=== PATIENT | male | born 1965 | race African-American/Black ===

== ENCOUNTER 2021-07-18 02:41 | Observation (INO) | payer BC ==
--- OUTSIDE RECORDS SUMMARY | 2021-07-18 02:46 | XMS REPORT | Continuity of Care Document ---
:1965 Author Organization [facility] t Address [address] [place] [address] Care Team Providers Name Role Phone Chris Wills MD Primary Care Physician Perfecto DIAZ Attending Clinician Payers Payer Name Policy Type Policy Number Effective Date Expiration Date S ource Problems This patient has no known problems. Allergies, Adverse Reactions, Alerts This patient has no known allergies or adverse reactions. Social History Social Habit Start Date Stop Date Quantity Comments Source Sex Ass[birth year] At [birth year] [facility] 00:00:00 00:00:00 Smoking Status Start Date Stop Date Source Unknown if ever smoked [facility] Medications Ordered Filled Start Stop Current Ordering Indication Dosage Frequency Signature Comments Components Source Medication Medication Date Date Medication? Clinician (SIG) Name Name DULoxetine Yes 60mg QD Take 60 mg M ethodi (CYMBALTA) [address] 60 MG 18:25: daily. [facility]osp[facility] capsule 46 l dextroamphe Yes 20mg QD Take 20 mg Methodi tamine-amph -[address] etamine 18:25: daily. Hospita (ADDERALL) 46 l 20 mg tablet modafinil Yes 100mg QD Take 100 Met hodi (PROVIGIL) 7-[address] 100 MG 18:25: mouth [facility]ospita tablet 46 daily. l vortioxetin Yes Trintellix Methodi e 7-[address] (TRINTELLIX 18:25: tablet Hosp sheree ) 10 mg 46 l tablet clomiPHENE Yes 25mg QD Take 25 mg M ethodi (CLOMID) 50 05-[address] mg tablet 18:25: daily. Hospit a 46 l Vital Signs Vital Name Observation Time Observation Value Comments Source Body height 2021-05-08 18:28:00 190.5 cm [facility] Body weight 2021-05-08 18:28:00 98.431 kg [facility] BMI 2021-05-08 18:28:00 27.12 kg/m2 [facility] Procedures Procedure Date / Time Performed Performing Clinician [facility] e CT ABDOMEN WWO CONTRAST 2021-05-08 19:19:51 System, Provider Not [facility] PELVIS W CONTRAST In POC CREATININE 2021-05-08 18:32:00 [facility] ESTIMATED GFR 2021-05-08 18:32:00 [facility] Plan of Care Planned Activity Planned Date Details Comments Source Future Scheduled Test COVID-19 VACCINE (1) [facility] [code = COVID-19 VACCINE (1)] Future Scheduled Test Hepatitis C screening [facility] (procedure) [code = 112009012] Future Scheduled Test COLONOSCOPY SCREENING [facility] [code = COLONOSCOPY SCREENING] Future Scheduled Test SHINGLES VACCINES (#1) [facility] [code = SHINGLES VACCINES (#1)] Future Scheduled Test INFLUENZA VACCINE [code [facility] = INFLUENZA VACCINE] Encounters Start End Encounter Admission Attending Care Care Encounter Source Date/Time Date/Time Type Type Clinicians Facility Department ID 2021-05-08 2021-05-08 [facility] 1.2.840.1 [id number] [facility] 12:52:46 23:59:00 Encounter , Abigail [id number] 3.430.2.7 Hospit a .3.929730 l .8 2021-05-08 2021-05-08 Outpatient [facility] [id number] [place] 00:00:00 00:00:00 , ABIGAIL [address] 2021-05-08 2021-05-08 Travel 1.2.840.1 [id number] [facility] 00:00:00 00:00:[id number] 3.430.2.7 0.2.7.3.698 Ho spita .3.793899 084.8 l .8 2021-05-06 2021-05-06 Travel 1.2.840.1 [id number] [id number] [facility] 00:00:00 00:00:[address] 3.430.2.7 0.2.7.3.698 Ho spita .3.396809 084.8 l .8 2021-05-06 2021-05-06 Transcribe [place] 1.2.840.1 [id number] [facility] 00:00:00 00:00:00 Orders , Abigail [id number] 530 s t 3.430.2.7 Hospit a .3.680488 l .8 Results Test Description Test Time Test Comments Results Result [facility] e Comments CT Abdomen [facility] EXAMINATION: CT Meth odist Contrast, Pelvis 2 ABDOMEN [facility] W Contrast 20:16:53 PELVIS W CONTRAST CLINICAL HISTORY: R19.09 Other intra-abdominal and pelvic swelling mass and lump, R19.09 COMPARISON: None. TECHNIQUE: CT of the abdomen and pelvis with intravenous contrast. Noncontrast images obtained of the abdomen. CT imaging was performed with iterative reconstruction techniques and/or automated exposure control to reduce radiation dose. FINDINGS: LOWER THORAX: Normal. HEPATOBILIARY: No focal hepatic lesion or ductal dilatation. SPLEEN: No splenomegaly. PANCREAS: No focal masses or ductal dilation. ADRENALS: There is a 1.6 cm left adrenal nodule (series 302, image 39) which is benign as it is unchanged from 2017. It measures 10 Hounsfield units on precontrast images, 61 Hounsfield units on postcontrast images and 30 Hounsfield units on 15 minute delayed. Absolute washout is 61%. No right adrenal nodule. KIDNEYS: No hydronephrosis, stones or solid masses. GI TRACT: The appendix is normal. There is no bowel dilation or wall thickening. PERITONEUM/RETROPERI TONEUM: No free air or fluid. No lymphadenopathy. VASCULATURE: Abdominal aorta is nonaneurysmal. PELVIC ORGANS/BLADDER: Unremarkable. BONES AND SOFT TISSUES: Small fat-containing umbilical hernia. There is some mild serpiginous sclerosis of the weight bearing portions of the femoral heads. This appears slightly more prominent than on prior. It's suggestive of some avascular necrosis without subchondral collapse. IMPRESSION: 1.1.6 cm left adrenal nodule is stable from 2017, benign. 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 2.Additional findings as above. [id number] Interface, Radiology Results 05/08/2021 3:19 PM CDT EXAMINATION : CT ABDOMEN WWO CONTRAST PELVIS W CONTRASTCLINICAL HISTORY: R19.09 Other intra-abdominal and pelvic swelling mass and lump, R19.09COMPARISON: None.TECHNIQUE: CT of the abdomen and pelvis with intravenous contrast. Noncontrast images obtained of the abdomen.CT imaging was performed with iterative reconstruction techniques and/or automated exposure control to reduce radiation dose. FINDINGS:LOWER THORAX: Normal.HEPATOBILIARY : No focal hepatic lesion or ductal dilatation.SPLEEN: No splenomegaly.PANCREA S: No focal masses or ductal dilation.ADRENALS: There is a 1.6 cm left adrenal nodule (series 302, image 39) which is benign as it is unchanged from 2017. It measures 10 Hounsfield units on precontrast images, 61 Hounsfield units on postcontrast images and 30 Hounsfield units on 15 minute delayed. Absolute washout is 61%. No right adrenal nodule.KIDNEYS: No hydronephrosis, stones or solid masses.GI TRACT: The appendix is normal. There is no bowel dilation or wall thickening.PERITONEU M/RETROPERITONEUM: No free air or fluid. No lymphadenopathy.VASC ULATURE: Abdominal aorta is nonaneurysmal.PELVIC ORGANS/BLADDER: Unremarkable.BONES AND SOFT TISSUES: Small fat-containing umbilical hernia. There is some mild serpiginous sclerosis of the weight bearing portions of the femoral heads. This appears slightly more prominent than on prior. It's suggestive of some avascular necrosis without subchondral collapse.IMPRESSION: 1.1.6 cm left adrenal nodule is stable from 2016, benign. 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.2.Additional findings as above.[id number] H POC creatinine 2021-05-08 18:33:48 Test Item Value Reference Range Interpretation Comme nts POC creatinine (test code = 1.3 mg/dl 0.7-1.2 H Training Instructor Name: Nimco [id number]) Ignacia Hart D: [id number] Lab Interpretation (test code = Abnormal 40040-1) [id number] 18:33:48 Test Item Value Reference Range Interpretation Comments Estimated GFR (test mL/min/1.73 m2 Caterg ory Units code = 16520-9) Interpretati onG1 >=90 Normal or highG2 60-89 Mildly cfzxkwuckM7q 45-59 Mildly to mode rately dakmzhdyoX3v 30-44 Moderately to severely decreasedG4 15-29 Severely decre asedG5 <15 Kidn ey failureThe eGFR was calculated maykel sorenson the Chronic Kidney Disease Epidemiology Co llaboration (CKD-EPI) equat ion. Interpretation is based on recommendations of the National Kidney Foundation-Kidn ey Disease Outcomes Qualit y Initiative (NKF-KDOQI) pub lished in 2014. [facility]
[2021-07-18 03:47] LABS: Protime INR 1.06
[2021-07-18 03:49] LABS: Absolute Lymphocytes (CBC) 1.2 K/uL (0.7-4.9); Basophils % 0.6 % (0-1.3); Hematocrit 40.1 % (39.6-49.0); Lymphocytes % 24.6 % (15.3-44.8); MPV 7.2 fL (7.6-11.3); RBC Red Blood Cell Count 4.48 M/uL (4.33-5.43)
[2021-07-18 04:06] LABS: ALT/SGPT 25 U/L (12-78); AST/SGOT 23 U/L (15-37); Albumin 3.8 g/dL (3.4-5.0); Alkaline Phosphatase 46 U/L (45-117); BUN Blood Urea Nitrogen 20 mg/dL (7-18); Bicarbonate 29 mmol/L (21-32); Bilirubin Direct 0.1 mg/dL (0-0.2); Bilirubin Total 0.5 mg/dL (0.2-1.0); Glucose Level 94 mg/dL (74-106); Magnesium 2.1 mg/dL (1.8-2.4); NT PRO-BNP 19 pg/mL (<125); Potassium 4.5 mmol/L (3.5-5.1); Protein, Total 7.6 g/dL (6.4-8.2); Sodium Level 139 mmol/L (136-145); Troponin (Emerg Dept Use Only) < 0.02 ng/mL (0.0-0.045)
--- NOTE | 2021-07-18 05:17 | EDPHYS ---
Physician Documentation [facility] Name: Mateus Jj Age: 56 yrs Sex: Male : 1965 Arrival Date: 07/18/2021 Time: 02:44 Bed 24 Private MD: ED Physician Juan Valverde HPI: 07/18 05:38 This 56 yrs old Black Male presents to ER via Wheelchair with complaints of Headache, tw4 FEELS DISORIENTED. 05:38 The patient complains of pain to the forehead. The patient describes the headache as tw4 aching. Onset: The symptoms/episode began/occurred today. Associated signs and symptoms: The patient has no apparent associated signs or symptoms. Severity of symptoms: At its worst the pain was moderate, in the emergency department the pain is unchanged. The patient has not experienced similar symptoms in the past. 05:39 Patient awoke tonight stated that he was disoriented and "did not feel right. Patient's tw4 noticed that he was really slow in his cognition. She denied that he had any changes in his speech. Patient complained that he had difficulty with his gait but could not describe specifically how he had difficulty walking. Patient denied falling to 1 side or the other. Patient denies any vertigo symptoms however he stated he felt lightheaded. Patient stated that he has improved somewhat since his symptoms started approximately 1 hour ago. 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 - Social history:: Smoking status: unknown. ROS: 05:38 Constitutional: Negative for fever, chills, and weight loss, Eyes: Negative for injury, tw4 pain, redness, and discharge, Cardiovascular: Negative for chest pain, palpitations, and edema, Respiratory: Negative for shortness of breath, cough, wheezing, and pleuritic chest pain, Abdomen/GI: Negative for abdominal pain, nausea, vomiting, diarrhea, and constipation, Back: Negative for injury and pain, MS/Extremity: Negative for injury and deformity, Skin: Negative for injury, rash, and discoloration. 05:38 Neuro: Positive for headache, Negative for altered mental status, dizziness, gait disturbance, numbness, seizure activity, speech changes, syncope, near syncope, tingling, tinnitus, tremor, visual changes. Exam: 05:38 Constitutional: This is a well developed, well nourished patient who is awake, alert, tw4 and in no acute distress. Head/Face: Normocephalic, atraumatic. Chest/axilla: Normal chest wall appearance and motion. Nontender with no deformity. No lesions are appreciated. Cardiovascular: Regular rate and rhythm with a normal S1 and S2. No gallops, murmurs, or rubs. Normal PMI, no JVD. No pulse deficits. Respiratory: Lungs have equal breath sounds bilaterally, clear to auscultation and percussion. No rales, rhonchi or wheezes noted. No increased work of breathing, no retractions or nasal flaring. Abdomen/GI: Soft, non-tender, with normal bowel sounds. No distension or tympany. No guarding or rebound. No evidence of tenderness throughout. Back: No spinal tenderness. No costovertebral tenderness. Full range of motion. MS/ Extremity: Pulses equal, no cyanosis. Neurovascular intact. Full, normal range of motion. 05:38 Neuro: Orientation: is normal, Mentation: is normal, Memory: is normal, Cranial nerves: grossly normal, Cerebellar function: is grossly normal, Motor: is normal, Sensation: is normal, Gait: is steady, at a normal pace, without difficulty. Vital Signs: 03:05 BP 112 / 87; Pulse 73; Resp 16 S; Temp 98.7(O); Pulse Ox 94% on R/A; Weight 99.79 kg bb (R); Height 6 ft. 3 in. (190.50 cm) (R); Pain 3/10; 04:00 BP 120 / 71; Pulse 78; Resp 13; Temp 98.7; jl7 04:18 BP 119 / 70; Pulse 78; Resp 16; Temp 98.8; Pulse Ox 99% ; wr 05:53 BP 109 / 79; Pulse 67; Resp 16; Temp 98.7; Pulse Ox 99% ; wr 03:05 Body Mass Index 27.50 (99.79 kg, 190.50 cm) NIH Stroke Scale Scores: 05:41 NIHSS Score: 0 tw4 John Coma Score: 05:41 Eye Response: spontaneous(4). Verbal Response: oriented(5). Motor Response: obeys tw4 commands(6). Total: 15. MDM: 02:54 Patient medically screened. tw4 05:41 Data reviewed: vital signs, nurses notes. Data interpreted: Pulse oximetry: is not tw4 applicable for this patient encounter. Counseling: I had a detailed discussion with the patient and/or guardian regarding: the historical points, exam findings, and any diagnostic results supporting the discharge/admit diagnosis. 07/18 02:55 Order name: Basic Metabolic Panel [facility] 07/18 02:55 Order name: CBC with Diff [facility] 07/18 02:55 Order name: LFT's [facility] 07/18 02:55 Order name: Magnesium [facility] 07/18 02:55 Order name: NT PRO-BNP [facility] 07/18 02:55 Order name: PT-INR; Complete Time: 04:40 [facility] 07/18 02:55 Order name: Troponin (emerg Dept Use Only) [facility] 07/18 02:55 Order name: Basic Metabolic Panel [facility] 07/18 02:55 Order name: CBC with Automated Diff; Complete Time: 04:40 [facility] 07/18 02:55 Order name: Liver (Hepatic) Function [facility] 07/18 02:55 Order name: Magnesium [facility] 07/18 04:21 Order name: CREATININE WHOLE BLOOD; Complete Time: 04:40 [facility] 07/18 05:22 Order name: COVID-19 : Document "Date of Symptom Onset" if Symptomatic. 07/18 06:33 Order name: SARS-COV-2 RT PCR [facility] 07/18 02:55 Order name: XRAY Chest (1 view) [facility] 07/18 02:55 Order name: EKG; Complete Time: 02:55 [facility] 07/18 02:55 Order name: Cardiac monitoring [facility] 07/18 02:55 Order name: EKG - Nurse/Tech [facility] 07/18 03:18 Order name: Ct Stroke Brain Wo Cont [facility] 07/18 03:38 Order name: CT Head Angio [facility] 07/18 03:38 Order name: CT Neck Angio [facility] 07/18 05:33 Order name: CONS Physician Consult [facility] 07/18 08:16 Order name: Lipid Profile [facility] 07/18 08:16 Order name: T4 Free [facility] 07/18 08:16 Order name: Thyroid Stimulating Hormone [facility] 07/18 02:55 Order name: IV Saline Lock [facility] 07/18 02:55 Order name: Labs collected and sent; Complete Time: 03:57 tw 07/18 02:55 Order name: O2 Per Protocol [facility] 07/18 02:55 Order name: O2 Sat Monitoring tw 07/18 03:17 Order name: O2 Sat Monitoring; Complete Time: 03:59 [facility] 07/18 03:17 Order name: Stroke Swallow Screen; Complete Time: 04:15 tw4 Administered Medications: 07:02 Drug: Aspirin Chewable Tablet 324 mg Route: PO; wr 07:02 Drug: foLIC Acid 1 mg Route: PO; Disposition Summary: 07/18/21 05:16 Hospitalization Ordered Hospitalization Status: Observation tw4 Provider: Teresita Lee [facility] Condition: Stable tw4 Problem: new tw4 Symptoms: have improved tw4 Bed/Room Type: Standard tw4 Location: [facility] ER HOLD(07/18/21 06:15) Room Assignment: ERHOLD-(07/18/21 06:15) Diagnosis - Altered mental status, unspecified tw4 Forms: - Medication Reconciliation Form tw4 - SBAR form tw4 NIH Stroke Scale - NIH Stroke Score Date: 07/18/2021 Time: 05:41 Total Score = 0 1a. Level of Consciousness (LOC) - 0(Alert) 1b. Level of Consciousness (LOC) (Month \\T\\ Age) - 0(Both) 1c. LOC Commands (Open \\T\\ Closes Eyes/Sales Department Clerk) - 0(Both) 2. Best Gaze (Lateral Gaze Paresis) - 0(Normal) 3. Visual Field Loss - 0(No visual loss) 4. Facial Palsy - 0(Normal) 5a. Left Arm: Motor (10-second hold) - 0(No drift) 5b. Right Arm: Motor (10-second hold) - 0(No drift) 6a. Left Leg: Motor (5-second hold - always test supine) - 0(No drift) 6b. Right Leg: Motor (5-second hold - always test supine) - 0(No drift) 7. Limb Ataxia (finger/nose \\T\\ heel/barbosa - test with eyes open) - 0(Absent) 8. Sensory Loss (pinprick arms/legs/face) - 0(Normal) 9. Best Language: Aphasia (description/naming/reading) - 0(No aphasia) 10. Dysarthria (speech clarity - read or repeat words) - 0(Normal) 11. Extinction and Inattention (visual/tactile/auditory/spatial/personal) - 0(No abnormality) Initials: tw4 Signatures: Dispatcher [employer] EDMS Rebecca Danielle, RN RN Sidra Mckeon, RN RN Juan Cabral MD MD [facility] Nahun Olivas Corrections: (The following items were deleted from the chart) 03:18 02:55 Head Brain Wo Cont+CT.RAD.BRZ ordered. EDMS EDMS 03:20 03:17 Chest Single View+RAD.RAD.BRZ ordered. EDMS EDMS 03:22 03:17 CT-STROKE BRAIN W/O CONTRAST+CT.RAD.BRZ ordered. EDMS EDMS 03:31 03:25 Home Meds: Adderall XR 30 mg Oral cp24; tono bb 06:15 05:16 Telemetry/MedSurg (observation) 4 mw 06:15 05:16 tw4 mw
--- NOTE | 2021-07-18 05:17 | ER ---
Nurse's Notes [facility] Name: Mateus Jj Age: 56 yrs Sex: Male : 1965 Arrival Date: 07/18/2021 Time: 02:44 Bed 24 Private MD: Diagnosis: Altered mental status, unspecified Presentation: 07/18 03:05 Chief complaint: Patient states: he woke up about 30 mins ago not feeling himself, bb disoriented, having to walk carefully, headache. states pt speaking very quietly which is not like him and he had a syncopal episode 4 days ago. Coronavirus screen: At this time, the client does not indicate any symptoms associated with coronavirus-19. Ebola Screen: No symptoms or risks identified at this time. Initial Sepsis Screen: Does the patient meet any 2 criteria? No. Patient's initial sepsis screen is negative. Does the patient have a suspected source of infection? No. Patient's initial sepsis screen is negative. Risk Assessment: Do you want to hurt yourself or someone else? Patient reports no desire to harm self or others. Onset of symptoms was July 18, 2021. 03:05 Method Of Arrival: Wheelchair bb 03:05 Acuity: MOY 2 bb Triage Assessment: 04:18 General: Appears in no apparent distress. Behavior is calm, cooperative. wr 04:30 Pain: Denies pain. 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 - Social history:: Smoking status: unknown. Screenin:17 Abuse screen: None. wr 04:23 The patient tolerated 90mL of water. No drooling, immediate coughing, gurgling, or wr clearing of the throat was noted. The patient passed the bedside swallow screening. Oral medications may be given as ordered. Contact Physician for further diet orders. Provider notified of bedside swallow screening results: Juan Valverde MD. Fall Risk None identified. Fall in past 12 months (25 points). No secondary diagnosis (0 pts). Mental Status- Oriented to own ability (0 pts). 04:29 Nutritional screening: No deficits noted. wr 04:31 Tuberculosis screening: No symptoms or risk factors identified. wr Vital Signs: 03:05 BP 112 / 87; Pulse 73; Resp 16 S; Temp 98.7(O); Pulse Ox 94% on R/A; Weight 99.79 kg bb (R); Height 6 ft. 3 in. (190.50 cm) (R); Pain 3/10; 04:00 BP 120 / 71; Pulse 78; Resp 13; Temp 98.7; jl7 04:18 BP 119 / 70; Pulse 78; Resp 16; Temp 98.8; Pulse Ox 99% ; wr 05:53 BP 109 / 79; Pulse 67; Resp 16; Temp 98.7; Pulse Ox 99% ; wr 03:05 Body Mass Index 27.50 (99.79 kg, 190.50 cm) bb John Coma Score: 05:41 Eye Response: spontaneous(4). Verbal Response: oriented(5). Motor Response: obeys tw4 commands(6). Total: 15. NIH Stroke Scale Scores: 05:41 NIHSS Score: 0 tw4 ED Course: 02:44 Patient arrived in ED. wm 02:54 Juan Valverde MD is Attending Physician. tw4 03:06 XRAY Chest (1 view) In Process Unspecified. EDMS 03:08 Triage completed. bb 03:10 Arm band placed on Patient placed in an exam room, on a stretcher, on pulse oximetry. bb Family accompanied patient. 03:21 Ct Stroke Brain Wo Cont In Process Unspecified. EDMS 04:11 CT Head Angio In Process Unspecified. EDMS 04:11 CT Neck Angio In Process Unspecified. EDMS 04:30 Patient has correct armband on for positive identification. wr 05:15 Teresita Lee MD is Hospitalizing Provider. tw4 07:23 Estephanie Lopez, MAXIMO is Primary Nurse. jl7 07:30 No provider procedures requiring assistance completed. Patient admitted, IV remains in jl7 place. intact, No redness/swelling at site. Administered Medications: 07:02 Drug: Aspirin Chewable Tablet 324 mg Route: PO; wr 07:02 Drug: foLIC Acid 1 mg Route: PO; wr Outcome: 04:23 Condition: stable wr 05:16 Decision to Hospitalize by Provider. tw4 07:30 Admitted to ER Hold. Please see [facility] for further documentation. jl7 07:30 Discharge instructions given to patient, family, Instructed on the need for admit, Demonstrated understanding of instructions. 17:31 Patient left the ED. jl7 NIH Stroke Scale - NIH Stroke Score Date: 07/18/2021 Time: 05:41 Total Score = 0 1a. Level of Consciousness (LOC) - 0(Alert) 1b. Level of Consciousness (LOC) (Month \T\ Age) - 0(Both) 1c. LOC Commands (Open \T\ Closes Eyes/Steel Fabricator) - 0(Both) 2. Best Gaze (Lateral Gaze Paresis) - 0(Normal) 3. Visual Field Loss - 0(No visual loss) 4. Facial Palsy - 0(Normal) 5a. Left Arm: Motor (10-second hold) - 0(No drift) 5b. Right Arm: Motor (10-second hold) - 0(No drift) 6a. Left Leg: Motor (5-second hold - always test supine) - 0(No drift) 6b. Right Leg: Motor (5-second hold - always test supine) - 0(No drift) 7. Limb Ataxia (finger/nose \T\ heel/barbosa - test with eyes open) - 0(Absent) 8. Sensory Loss (pinprick arms/legs/face) - 0(Normal) 9. Best Language: Aphasia (description/naming/reading) - 0(No aphasia) 10. Dysarthria (speech clarity - read or repeat words) - 0(Normal) 11. Extinction and Inattention (visual/tactile/auditory/spatial/personal) - 0(No abnormality) Initials: tw4 Signatures: Dispatcher [employer] Sidra Hung RN RN bb Leal, Jahala, RN RN jl7 Juan Valverde MD MD tw4 Lila Pastrana [place] wr Corrections: (The following items were deleted from the chart) 03:31 03:25 Home Meds: Adderall XR 30 mg Oral cp24; tono power 07:30 04:00 BP 120 / 71; Pulse 78bpm; Resp 13bpm; Temp 98.7F; 44 kg; BMI: 12.1; wr jl7
--- NOTE | 2021-07-18 05:56 | P.HP ---
Certification for Inpatient Patient admitted to: Observation With expected LOS: <2 Midnights Patient will require the following post-hospital care: None Practitioner: I am a practitioner with admitting privileges, knowledge of patient current condition, hospital course, and medical plan of care. Services: Services provided to patient in accordance with Admission requirements found in Title 42 Section 412.3 of the Code of Federal Regulations <William Garcia Carolann - Last Filed: 07/18/21 05:50> Patient History Date of Service: 07/18/21 Primary Care Provider: Chris Reason for admission: disorientation History of Present Illness: Ms. Jj is a 56 yo M w narcolepsy, vasovagal syncope, unspecified autoimmune disorder who presents with episode of dizziness. He says he woke up early this morning and was not feeling himself. Describes feeling lightheaded, disoriented, 'fogginess' and a headache. Also reports nausea. says he was walking very carefully and speaking quietly. Before he went to sleep, he says he felt like his baseline. This has never happened before. Symptoms have now resolved. Had an episode of syncope 4 days ago. BUN 20, Cr 1.39, GFR 65. Ct head without findings. Admitted for observation to be seen by neurologist. 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 moist/pink, EOMI, Sclerae nonicteric Neck: Supple, 2+ carotid pulse no bruit, No LAD, Without JVD or thyroid abnormality Respiratory: Clear to auscultation bilaterally, Normal air movement Cardiovascular: Regular rate/rhythm, Normal S1 S2 Gastrointestinal: Normal bowel sounds, No tenderness Musculoskeletal: No tenderness Integumentary: No rashes Neurological: Normal gait, Normal speech, Normal strength at 5/5 x4 extr, Normal tone, Normal affect Lymphatics: No axilla or inguinal lymphadenopathy - Studies Laboratory Data (last 24 hrs) 07/18/21 03:24: PT 12.2, INR 1.06 07/18/21 03:24: WBC 5.00, Hgb 13.1 L, Hct 40.1, Plt Count 249 07/18/21 03:24: Sodium 139, Potassium 4.5, BUN 20 H, Creatinine 1.39 H, Glucose 94, Magnesium 2.1, Total Bilirubin 0.5, AST 23, ALT 25, Alkaline Phosphatase 46 <William Garcia - Last Filed: 07/18/21 05:50> Assessment and Plan - Problems (Diagnosis) (1) Disorientation Status: Acute - Plan neurology consulted daily ASA, folic acid, statin lipid panel pending MRI pending, ECHO pending reconcile and continue home medications DVT ppx Discharge Plan: Home Plan to discharge in: 24 Hours - Advance Directives Does patient have a Living Will: Yes Does patient have a Durable POA for Healthcare: Yes - Code Status/Comfort Care Code Status Assessed: Yes (full code ) Critical Care: No Time Spent Managing Pts Care (In Minutes): 70 <William Garcia - Last Filed: 07/18/21 05:50> Date of Service: 07/18/21 Subjective: Agree with plan of care as mentioned above Physical Examination: Vitals: Afebrile vital signs are stable Physical exam: Cardiovascular: Within normal limits. Lungs: Within normal limits Abdomen: Within normal limits Neuro: Awake, alert, oriented to person place and time Assessment: 1. Syncope and collapse Plan: 1. Plan to do outpatient neurology and cardiology follow-up. <Teresita Lee - Last Filed: 07/20/21 01:14>
[2021-07-18] MEDS ORDERED: NA CHLORIDE 0.9% 1,000 ML IV SCH (06:00)
[2021-07-18] MEDS ORDERED: ACETAMINOPHEN 500 MG TAB PO PRN (07:17)
[2021-07-18] MEDS ORDERED: ONDANSETRON 4 MG/2 ML VIAL IV PRN (07:17)
[2021-07-18] MEDS ORDERED: ASPIRIN 325 MG TAB ONE (07:22)
[2021-07-18] MEDS ORDERED: FOLIC ACID 1 MG TABLET ONE ×2 (07:23→09:05)
[2021-07-18 07:49] VITALS: BMI 27.5
[2021-07-18 08:16] LABS: HDL Cholesterol 54 mg/dL (40-60); LDL Cholesterol, Calculated 90 (<130); Thyroid Stimulating Hormone 0.638 uIU/mL (0.360-3.740)
--- NOTE | 2021-07-18 08:31 | RAD REPORT ---
EXAM DESCRIPTION: RAD - Chest Single View - 07/18/2021 3:06 am CLINICAL HISTORY: .. COMPARISON: No comparisons FINDINGS: Lines: None. Lungs: There is some scattered faint airspace opacities in the lung bases. Pleural: No significant pleural effusions or pneumothorax. Cardiac: The heart size is within normal limits. Bones: No acute fractures. Other: IMPRESSION: Mild basilar opacities could reflect pneumonia.
[2021-07-18] MEDS ORDERED: ASPIRIN EC 81 MG TAB PO SCH (09:00)
[2021-07-18] MEDS ORDERED: FOLIC ACID 1 MG TABLET PO SCH (09:00)
[2021-07-18] MEDS ORDERED: ASPIRIN EC 81 MG TAB PO ONE (09:06)
[2021-07-18] MEDS ORDERED: NA CHLORIDE 0.9% 1,000 ML ONE (09:06)
[2021-07-18 10:20] VITALS: O2SAT 94
--- NOTE | 2021-07-18 12:08 | RAD REPORT ---
EXAM DESCRIPTION: CT - Head angio - 07/18/2021 5:59 am COMPARISON: CT head 07/18/2021 CLINICAL HISTORY: [facility] MAIN CONFUSED TECHNIQUE: CTA of the head and neck was performed with IV contrast. Multiplanar reformats were obtai josh. MIPS reformats are provided. Automated exposure control was utilized on the exam as a dose lower ing technique. HEAD FINDINGS: Anterior circulation: The visualized portions of the internal carotid arteries are unremarkable. Both anterior and middle cerebral arteries show no significant stenosis. No anterior ci rculation aneurysms. Posterior circulation: The visualized distal vertebral arteries are patent to the vertebrobasilar j unction. The basilar artery and both posterior cerebral arteries are patent. No posterior circulation aneurysms. Visualized dural venous sinuses: Patent. Other findings: The visualized brain parenchyma is unremarkable. Visualized portions of the orbits, sinuses, mastoids, and skull base are unremarkable. NECK FINDINGS: Cervical-cerebral arch: The aortic arch is out of the [id number]. No significant s tenoses of the arch or branching vessels. Visualized subclavian arteries are patent. RIGHT carotid system: The common carotid artery is patent. The internal carotid artery is patent. The external carotid artery is patent. No significant calcified plaque. No evidence of dissection. The estimated internal carotid stenosis by NASCET criteria is 0%. LEFT carotid system: The common carotid artery is patent. The internal carotid artery is patent. The external carotid artery is patent. No significant calcified plaque. No evidence of dissection. The estimated internal carotid stenosis by NASCET criteria is 0%. Vertebral arteries: The right vertebral artery is patent to the cervical portion. The left vertebral artery is patent to the cervical portion. No evidence for dissection or aneurysm. Thyroid Gland: Normal. Cervical soft tissues, upper chest and osseous structures: Cervical spondylosis. IMPRESSION: *Exam limited by motion artifact, especially in the basicervical region and petrous port ions of the internal carotid arteries. No acute intracranial or extracranial vascular findings. COMMENT: All internal carotid artery stenoses are calculated based on NASCET criteria. Electronically signed by: Pelon Muhammad MD 07/18/2021 4:57 AM CDT Due to temporary technical issues with the PACS/Fluency reporting system, reports are being signed by the in house radiologists without review as a courtesy to insure prompt reporting. The interpreting radiologist is fully responsible for the content of the report.
--- NOTE | 2021-07-18 12:21 | RAD REPORT ---
EXAM DESCRIPTION: CT - Neck Angio - 07/18/2021 6:00 am COMPARISON: CT head 07/18/2021 CLINICAL HISTORY: [facility] MAIN CONFUSED TECHNIQUE: CTA of the head and neck was performed with IV contrast. Multiplanar reformats were obtai josh. MIPS reformats are provided. Automated exposure control was utilized on the exam as a dose lower ing technique. HEAD FINDINGS: Anterior circulation: The visualized portions of the internal carotid arteries are unremarkable. Both anterior and middle cerebral arteries show no significant stenosis. No anterior ci rculation aneurysms. Posterior circulation: The visualized distal vertebral arteries are patent to the vertebrobasilar j unction. The basilar artery and both posterior cerebral arteries are patent. No posterior circulation aneurysms. Visualized dural venous sinuses: Patent. Other findings: The visualized brain parenchyma is unremarkable. Visualized portions of the orbits, sinuses, mastoids, and skull base are unremarkable. NECK FINDINGS: Cervical-cerebral arch: The aortic arch is out of the [id number]-orri. No significant s tenoses of the arch or branching vessels. Visualized subclavian arteries are patent. RIGHT carotid system: The common carotid artery is patent. The internal carotid artery is patent. The external carotid artery is patent. No significant calcified plaque. No evidence of dissection. The estimated internal carotid stenosis by NASCET criteria is 0%. LEFT carotid system: The common carotid artery is patent. The internal carotid artery is patent. The external carotid artery is patent. No significant calcified plaque. No evidence of dissection. The estimated internal carotid stenosis by NASCET criteria is 0%. Vertebral arteries: The right vertebral artery is patent to the cervical portion. The left vertebral artery is patent to the cervical portion. No evidence for dissection or aneurysm. Thyroid Gland: Normal. Cervical soft tissues, upper chest and osseous structures: Cervical spondylosis. IMPRESSION: *Exam limited by motion artifact, especially in the basicervical region and petrous port ions of the internal carotid arteries. No acute intracranial or extracranial vascular findings. COMMENT: All internal carotid artery stenoses are calculated based on NASCET criteria. Electronically signed by: Pelon Muhammad MD 07/18/2021 4:57 AM CDT Due to temporary technical issues with the PACS/Fluency reporting system, reports are being signed by the in house radiologists without review as a courtesy to insure prompt reporting. The interpreting radiologist is fully responsible for the content of the report.
--- NOTE | 2021-07-18 12:32 | RAD REPORT ---
EXAM DESCRIPTION: CT - Ct Stroke Brain Wo Cont - 07/18/2021 6:00 am COMPARISON: None. CLINICAL HISTORY: [facility] MAIN CONFUSED TECHNIQUE: Axial images were obtained from skull base to vertex without intravenous contrast. Imag es viewed on bone and brain windows. Multiplanar reformats were performed. Automated exposure contr ol was utilized on this examination as a dose lowering technique. FINDINGS: Brain parenchyma, ventricles, dura, meninges, and extra-axial spaces: Ventricles and sulci are normal. No abnormal attenuation of brain parenchyma is present. No acute intracranial hemor rhage or abnormal extra-axial fluid collections are present. Vascular structures: No hyperdense arteries or veins. Calvarium, mastoid air cells, paranasal sinuses and orbits: The calvarium is normal. The mastoid air cells are clear. Visualized paranasal sinuses are unremarkable. Orbital structures are unremarkable. IMPRESSION: No acute intracranial abnormality. Electronically signed by: Pelon Muhammad MD 07/18/2021 3:31 AM CDT Due to temporary technical issues with the PACS/Fluency reporting system, reports are being signed by the in house radiologists without review as a courtesy to insure prompt reporting. The interpreting radiologist is fully responsible for the content of the report.
[2021-07-18 14:58] VITALS: TEMP 98.1
[2021-07-18 16:52] VITALS: BP 102/74
[2021-07-18] MEDS ORDERED: ATORVASTATIN 40 MG TAB PO SCH (21:00)
--- NOTE | 2021-07-20 01:13 | P.DS ---
Discharge Date: 07/18/21 Primary Care Provider: Chris Disposition: ROUTINE DISCHARGE Discharge Condition: GOOD Reason for Admission: disorientation Brief History of Present Illness: Ms. Jj is a 56 yo M w narcolepsy, vasovagal syncope, unspecified autoimmune disorder who presents with episode of dizziness. He says he woke up early this morning and was not feeling himself. Describes feeling lightheaded, disoriented, 'fogginess' and a headache. Also reports nausea. says he was walking very carefully and speaking quietly. Before he went to sleep, he says he felt like his baseline. This has never happened before. Symptoms have now resolved. Had an episode of syncope 4 days ago. BUN 20, Cr 1.39, GFR 65. Ct head without findings. Admitted for observation to be seen by neurologist. Hospital Course: Patient workup was unremarkable. Spoke with Neurology and they will follow up patient up as an outpatient for MRI of the brain. Spoke with Cardiology and they will follow patient up for the event monitor. At this time patient is steady and doing well and stable for discharge home. Vital Signs/Physical Exam: Temp Pulse Resp BP Pulse Ox 98.1 F 66 15 102/74 98 07/18/21 12:00 07/18/21 16:00 07/18/21 16:00 07/18/21 16:00 07/18/21 16:00 General: Alert, In no apparent distress, Oriented x3 Laboratory Data at Discharge: WBC 5.00 K/uL (4.3-10.9) 07/18/21 03:24 Hgb 13.1 g/dL (13.6-17.9) L 07/18/21 03:24 Hct 40.1 % (39.6-49.0) 07/18/21 03:24 Plt Count 249 K/uL (152-406) 07/18/21 03:24 PT 12.2 SECONDS (9.5-12.5) 07/18/21 03:24 INR 1.06 07/18/21 03:24 Sodium 139 mmol/L (136-145) 07/18/21 03:24 Potassium 4.5 mmol/L (3.5-5.1) 07/18/21 03:24 BUN 20 mg/dL (7-18) H 07/18/21 03:24 Creatinine 1.39 mg/dL (0.55-1.3) H 07/18/21 03:24 Glucose 94 mg/dL (74-106) 07/18/21 03:24 Magnesium 2.1 mg/dL (1.8-2.4) 07/18/21 03:24 Total Bilirubin 0.5 mg/dL (0.2-1.0) 07/18/21 03:24 AST 23 U/L (15-37) 07/18/21 03:24 ALT 25 U/L (12-78) 07/18/21 03:24 Alkaline Phosphatase 46 U/L (45-117) 07/18/21 03:24 Triglycerides Cancelled 07/18/21 07:17 Cholesterol Cancelled 07/18/21 07:17 HDL Cholesterol Cancelled 07/18/21 07:17 Cholesterol/HDL Ratio Cancelled 07/18/21 07:17 Home Medications: Dextroamphetamine/Amphetamine [Adderall 30 mg Tablet] 30 mg PO DAILY 07/18/21 Vortioxetine Hydrobromide [Brintellix] 10 mg PO DAILY 07/18/21 clomiPHENE citrate [Clomiphene Citrate] 25 mg PO DAILY 07/18/21 Physician Discharge Instructions: OK TO DC IV AND DC HOME FOLLOW-UP WITH PCP IN 1-2 WEEKS CALL ME AT [phone] IF ANY QUESTIONS REGARD FOLLOW-UP WITH CARDIOLOGY, DR. METCALF, AND NEUROLOGY, DR. LUDWIG, IN 1-2 WEEKS RETURN TO THE ER IF SYMPTOMS WORSENS Diet: AHA Activity: Fall precautions Followup: Ender Metcalf MD [ACTIVE - CAN ADMIT] - Matthew Ludwig MD [ASSOCIATE-ACTIVE - CAN ADMIT] - Sean Perez MD [ACTIVE - CAN ADMIT] - NONE,NONE [Primary Care Provider] - Time spent managing pt's care (in minutes): 35
== END 2021-07-18 17:35 | disposition home or self-care (01) ==
LOC: ER 02:41 → UNDOADMOB 05:42 → ERHOLD 05:42
PROVIDERS: ADMIT Hospitalist; ATTEND Hospitalist
DX: R41.0 Disorientation, unspecified (principal); R55 Syncope and collapse; G47.419 Narcolepsy without cataplexy; D47.Z2 Castleman disease; Z20.822 Contact with and (suspected) exposure to COVID-19
CPT/HCPCS: 85025; 80048; 36415; 83735; 85610; 80061; 82565; 80076; 84443; 84484; 84439; 83880; 70496; 70498; 70450; 71045; 97161; 99285; U0003; Q9967; J7030; G0378

== ENCOUNTER 2022-02-10 13:54 | Observation (INO) | payer BC ==
--- OUTSIDE RECORDS SUMMARY | 2022-02-10 13:56 | XMS REPORT | Continuity of Care Document ---
:1965 Author Organization [facility] t Address [address] [place] [address] Care Team Providers Name Role Phone Chris Wills MD Primary Care Physician Leonel Attending Clinician Unavailable Perfecto DIAZ Attending Clinician GC_TEG_Perfecto_Meaghan Attending Clinician Unavailable KNOW Admitting Clinician Unavailable MERRITT_PEPE_Perfecto_C Admitting Clinician Unavailable Payers Payer Name Policy Type Policy Number Effective Date Expiration Date S marcia [place] [id number] 2015 00:00:00 Problems This patient has no known problems. Allergies, Adverse Reactions, Alerts This patient has no known allergies or adverse reactions. Social History Social Habit Start Date Stop Date Quantity Comments Source Sex Assigned At [birth year] [facility] 00:00:00 00:00:00 Smoking Status Start Date Stop Date Source Unknown if ever smoked [facility] Medications Ordered Filled Start Stop Current Ordering Indication Dosage Frequency Signature Comments Components Source Medication Medication Date Date Medication? Clinician (SIG) Name Name DULoxetine Yes 60mg QD Take 60 mg M ethodi (CYMBALTA) 05-[address] 60 MG 18:25: daily. Hospita capsule 46 l dextroamphe Yes 20mg QD Take 20 mg Methodi tamine-amph 05-[address] etamine 18:25: daily. Hospita [...] Take 25 mg M ethodi (CLOMID) [address] mg tablet 18:25: daily. Hospit a 46 l Vital Signs Vital Name Observation Time Observation Value Comments Source Body height 2021-05-08 18:28:00 190.5 cm [facility] Body weight 2021-05-08 18:28:00 98.431 kg [facility] BMI 2021-05-08 18:28:00 27.12 kg/m2 [facility] Procedures Procedure Date / Time Performed Performing Clinician Sour e CT ABDOMEN WWO CONTRAST 2021-05-08 19:19:51 System, Provider Not [facility] PELVIS W CONTRAST In POC CREATININE 2021-05-08 18:32:00 [facility] ESTIMATED GFR 2021-05-08 18:32:00 [facility] Plan of Care Planned Activity Planned Date Details Comments Source Future Scheduled Test COVID-19 VACCINE (1) [facility] [code = COVID-19 VACCINE (1)] Future Scheduled Test Hepatitis C screening [facility] (procedure) [code = 725954740] Future Scheduled Test COLONOSCOPY SCREENING [facility] [code = COLONOSCOPY SCREENING] Future Scheduled Test SHINGLES VACCINES (#1) [facility] [code = SHINGLES VACCINES (#1)] Future Scheduled Test INFLUENZA VACCINE [code [facility] = INFLUENZA VACCINE] Encounters Start End Encounter Admission Attending Care Care Encounter Source Date/Time Date/Time Type Type Clinicians Facility Department ID 2021-08-13 Inpatient [facility] RADI [id number] [facility] 13:00:00 Hayes [id number] [facility] 2021-08-20 2021-08-20 Outpatient Leonel [facility] RADI [id number] [facility] 10:00:00 10:00:00 Hayes [id number] [facility] 2021-08-13 2021-08-13 Outpatient LUL Peraza RADI [id number] [facility] 13:08:00 13:08:00 Hayes 74 [facility] 2021-05-08 2021-05-08 [facility] 1.2.840.1 [id number] Methodi 12:52:46 23:59:00 Abigail Rodriguez [address] 3.430.2.7 Hospit a .3.036116 l .8 2021-05-08 2021-05-08 Travel 1.2.840.1 1.2.623.696 [id number] Methodi 00:00:00 00:00:[address] 3.430.2.7 0.2.7.3.698 Ho spita .3.989552 084.8 l .8 2021-05-06 2021-05-06 Travel 1.2.840.1 1.2.864.929 [id number] [facility]i 00:00:00 00:00:[address] 3.430.2.7 0.2.7.3.698 Ho spita .3.881001 084.8 l .8 2021-05-06 2021-05-06 Transcribe [facility] 1.2.840.1 [id number] Methodi 00:00:00 00:00:00 Abigail Brown 70835.1.1 530 s t 3.430.2.7 Hospit a .3.715648 l .8 2021-03-12 2021-03-12 Outpatient GC_TEG_Bocc PRIV PRIV [id number] [facility] 01:01:00 01:01:00 nicole_Meaghan [id number] [facility] Results Test Description Test Time Test Comments Results Result [facility] e Comments - MRI C-SPINE W/O CONT 7 16:49:00 [facility] 1965 Sex: M FAX: Y Hayes Castaneda Camps: PM St: REG Name: KENNY FELDMAN Meaghan [facility] : 1965 Age/S: 56/M [id number] Unit #: [id number] Loc: [place] [address] Phys: Hayes Castaneda Acct: [id number] Dis Date: Status: REG CLI PHONE #: [phone] Exam Date: 08/13/2021 1400 FAX #: Reason: SYNCOPE/FALL EXAMS: CPT: [id number] MRI C-SPINE W/O CONT 70617 Dictation location: S17. MRI CERVICAL SPINE WITHOUT CONTRAST HISTORY: Syncope, fall TECHNIQUE: Multiplanar and multiple pulse sequences were obtained through the cervical spine without contrast. COMPARISON: None. FINDINGS: The vertebral alignment is straightened. The C1-C2 relation and craniocervical junction are preserved. No signal intensity changes are present in the spinal cord. At the C2-C3 level, right facet arthrosis causes no spinal canal stenosis and mild right neuroforaminal narrowing. At the C3-C4 level, no spinal canal stenosis or neuroforaminal narrowing. At the C4-C5 level, posterior disc and osteophyte complex asymmetric towards the right causes mild spinal canal stenosis and mild right neuroforaminal narrowing. At the C5-C6 level, posterior disc and osteophyte complex with prominent left uncovertebral hypertrophy causes mild to moderate spinal canal stenosis and mild right and severe left neuroforaminal narrowing. At the C6-C7 level, small posterior disc and osteophyte complex causes mild spinal canal stenosis and mild right neuroforaminal narrowing. At the C7-T1 level, no spinal canal stenosis or neuroforaminal narrowing. The signal intensity of the vertebral bodies is normal. IMPRESSION: PAGE 1 Signed Report (CONTINUED) FAX: Hayes Diaz Camps: PM St: [facility] 1965 Age/S: 56/M [id number] Unit #: [id number] Loc: [place] [address] Phys: Hayes Castaneda Acct: [id number] Dis Date: Status: REG CLI PHONE #: [phone] Exam Date: 08/13/2021 1400 FAX #: Reason: SYNCOPE/FALL EXAMS: CPT: [id number] MRI C-SPINE W/O CONT 27886 <Continued> Cervical spondylosis greatest at C5-C6 with mild to moderate spinal canal stenosis and severe left neuroforaminal narrowing. at 1039 Reported and signed by: Kj Ruiz M.D. CC: Hayes CERNA Technologist: RT Almas(Yasmeen)(MR) Transcribed Date/Time/By: 08/13/2021 (243) :[email or web address] Orig Print D/T: S: 08/13/2021 (540) PAGE 2 Signed Report - MRI BRAIN W/O CONTRAST 7 16:44:00 [facility] 1965 Sex: M FAX: Hayes Diaz Camps: PM St: REG Name: KENNY FELDMAN [facility] : 1965 Age/S: 56/M [id number] Unit #: [id number] Loc: [place] [address] Phys: Hayes Castaneda Acct: [id number] Dis Date: Status: REG CLI PHONE #: [phone] Exam Date: 08/13/2021 1430 FAX #: Reason: SYNCOPE/FALL EXAMS: CPT: [id number] MRI BRAIN W/O CONTRAST 30706 Dictation location: S17. MRI BRAIN WITHOUT CONTRAST HISTORY: SYNCOPE/FALL TECHNIQUE: Multiplanar and multiple pulse sequences were obtained throughout the brain without contrast. COMPARISON: None. FINDINGS: Diffusion weighted imaging shows no evidence of acute ischemia. The pituitary and posterior fossa are unremarkable. No significant abnormal T2/FLAIR signal hyperintensities in noted within the white matter. No hemorrhage, mass, mass effect, hydrocephalus, midline shift or extra-axial fluid collection. The paranasal sinuses and mastoid air cells are clear. IMPRESSION: No evidence of acute ischemia. Unremarkable MRI brain without contrast. at 1644 Reported and signed by: Kj Ruiz M.D. CC: Hayes CERNA Technologist: Tamika Herrera, RT(R)(MR) Transcribed Date/Time/By: 08/13/2021 (0601) :[email or web address] Orig Print D/T: S: 08/13/2021 (3562) PAGE [address] Abdomen WWO EXAMINATION: CT [facility]ist Contrast, Pelvis 2 ABDOMEN WWO CONTRAST Hospital W Contrast 20:16:53 PELVIS W CONTRAST [...] is no bowel dilation or wall thickening. PERITONEUM/RETROPERIT ONEUM: No free air or fluid. No lymphadenopathy. [...] consistent with adenoma. 2.Additional findings as above. [facility]-[id number] Interface, Radiology Results Incoming - 05/08/2021 3:19 PM CDT EXAMINATION: CT ABDOMEN WWO CONTRAST PELVIS W CONTRASTCLINICAL HISTORY: R19.09 Other intra-abdominal and pelvic swelling mass and lump, R19.09COMPARISON: None.TECHNIQUE: CT of the abdomen and pelvis with intravenous contrast. Noncontrast images obtained of the abdomen.CT imaging was performed with iterative reconstruction techniques and/or automated exposure control to reduce radiation dose. FINDINGS:LOWER THORAX: Normal.HEPATOBILIARY: No focal hepatic lesion or ductal dilatation.SPLEEN: No splenomegaly.PANCREAS : No focal masses or ductal dilation.ADRENALS: There [...] There is no bowel dilation or wall thickening.PERITONEUM /RETROPERITONEUM: No free air or fluid. No lymphadenopathy.VASCU LATURE: Abdominal aorta is nonaneurysmal.PELVIC ORGANS/BLADDER: Unremarkable.BONES AND SOFT TISSUES: Small fat-containing umbilical hernia. There is some mild serpiginous sclerosis of the weight bearing portions of the femoral heads. This appears slightly more prominent than on prior. It's suggestive of some avascular necrosis without subchondral collapse.IMPRESSION:1 .1.6 cm left adrenal nodule is stable from 2017, benign. 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.2.Additional findings as above.[id number] POC creatinine 2021-05-08 18:33:48 Test Item Value Reference Range Interpretation Comme nts POC creatinine (test code = 1.3 mg/dl 0.7-1.2 H Be[employer] Farmer Name: Nimco [id number]) [facility] D: [id number] Lab Interpretation (test code = Abnormal 65936-1) [facility]Estimated [id number] 18:33:48 Test Item Value Reference Range Interpretation Comments Estimated GFR (test mL/min/1.73 m2 Caterg ory Units code = 24989-3) Interpretati onG1 >=90 Normal or highG2 60-89 Mildly obdzhsviqL7d 45-59 Mildly to mode rately ruijwptofD0n 30-44 Moderately to severely decreasedG4 15-29 Severely decre asedG5 <15 Kidn ey failureThe eGFR was calculated usin g the Chronic Kidney Disease Epidemiology Co llaboration (CKD-EPI) equat ion. Interpretation is based on recommendations of the National Kidney Foundation-Kidn ey Disease Outcomes Qualit y Initiative (NKF-KDOQI) pub lished in 2014. [facility]
[2022-02-10] MEDS ORDERED: FAMOTIDINE 20 MG/2 ML VIAL IV ONE (14:13)
[2022-02-10] MEDS ORDERED: METHYLPREDNISOLONE 125 MG INJ ONE (14:13)
[2022-02-10] MEDS ORDERED: DIPHENHYDRAMINE 50 MG/ML VIAL ONE (14:13)
[2022-02-10 14:29] LABS: Absolute Lymphocytes (CBC) 1.6 K/uL (0.7-4.9); Hematocrit 39.3 % (39.6-49.0); Lymphocytes % 28.8 % (15.3-44.8); MPV 6.5 fL (7.6-11.3); RBC Red Blood Cell Count 4.55 M/uL (4.33-5.43)
--- NOTE | 2022-02-10 16:51 | EDPHYS ---
Physician Documentation [facility] Name: Mateus Jj Age: 56 yrs Sex: Male : 1965 Arrival Date: 02/10/2022 Time: 13:[address] Private MD: ED Physician Judd Cerrato HPI: 02/10 14:05 This 56 yrs old Black Male presents to ER via Ambulatory with complaints of Lips cp Swelling. 14:05 The patient presents with swelling. The problem is located in the upper and lower lip. cp Onset: The symptoms/episode began/occurred today. Duration: The symptoms are continuous, and are steadily getting worse. 14:05 Associated signs and symptoms: The patient has no apparent associated signs or symptoms.cp 14:05 Severity of symptoms: in the emergency department the symptoms are unchanged. The cp patient has not experienced similar symptoms in the past. Patient denies any new prescribed meds and/or medications OTC. Patient reports history of environmental allergies, denies food allergies and reports he usually takes Benadryl daily but did not take any Benadryl today. 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 - Social history:: Smoking status: Patient denies any tobacco usage or history of. ROS: 14:10 Constitutional: Negative for body aches, chills, fever, poor PO intake. cp 14:10 ENT: Positive for swelling of upper and lower lips, Negative for drainage from ear(s), cp ear pain, sore throat, difficulty swallowing, difficulty handling secretions. 14:10 Cardiovascular: Negative for chest pain. 14:10 Respiratory: Negative for cough, shortness of breath, wheezing. 14:10 Abdomen/GI: Negative for abdominal pain, nausea, vomiting, and diarrhea. 14:10 Neuro: Negative for altered mental status, headache, weakness. 14:10 All other systems are negative. Exam: 14:15 Constitutional: The patient appears in no acute distress, alert, awake, cp non-diaphoretic, non-toxic, well developed, well nourished. 14:15 Head/face: Noted is swelling, that is mild, of the upper lip and lower lip. cp 14:15 Eyes: Periorbital structures: appear normal, Conjunctiva: normal, no exudate, no injection, Sclera: no appreciated abnormality, Lids and lashes: appear normal, bilaterally. 14:15 ENT: External ear(s): are unremarkable, Nose: is normal, Mouth: Oral mucosa: pink and intact, moist, Tongue: is normal, drooling, is not appreciated, Posterior pharynx: Airway: no evidence of obstruction, patent. 14:15 Neck: ROM/movement: is normal, is supple, without pain, no range of motions limitations. 14:15 Chest/axilla: Inspection: normal, Palpation: is normal, no crepitus, no tenderness. 14:15 Cardiovascular: Rate: normal, Rhythm: regular. 14:15 Respiratory: the patient does not display signs of respiratory distress, Respirations: normal, no use of accessory muscles, no retractions, labored breathing, is not present, Breath sounds: are clear throughout, no decreased breath sounds, no stridor, no wheezing. 14:15 Abdomen/GI: Exam negative for discomfort, distension, guarding, Inspection: abdomen appears normal. 14:15 Skin: cellulitis, is not appreciated, no rash present. 14:15 Neuro: Orientation: to person, place \T\ time. Mentation: is normal, Motor: moves all cp fours, strength is normal. Vital Signs: 14:01 BP 117 / 77; Pulse 73; Resp 18 S; Temp 97.0(TE); Pulse Ox 98% on R/A; Weight 98.88 kg jd3 (R); Height 6 ft. 3 in. (190.50 cm) (R); Pain 0/10; 15:21 BP 106 / 77; Pulse 68; Resp 16; Pulse Ox 96% on R/A; vg1 16:00 BP 98 / 72; Pulse 65; Resp 16; Pulse Ox 95% on R/A; vg1 14:01 Body Mass Index 27.25 (98.88 kg, 190.50 cm) jd3 MDM: 14:30 Differential diagnosis: dental abscess, cellulitis, angioedema. cp 14:55 Patient medically screened. 16:50 Data reviewed: vital signs, nurses notes, lab test result(s), and as a result, I will cp admit patient. 16:50 Physician consultation: Bradly Pollard was called at 16:45, was contacted at 16:45, cp regarding admission, patient's condition. 02/10 14:08 Order name: CBC with Diff; Complete Time: 14:55 02/10 14:55 Interpretation: Normal except: HGB 13.0; HCT 39.3; MCV 86.5; MPV 6.5; MN% 16.2. 02/10 14:08 Order name: BMP; Complete Time: 14:55 02/10 14:56 Interpretation: Normal except: BUN 23; CRE 1.38; GFR 65. 02/10 17:36 Order name: Marion-Buck Virus Panel EDAL 02/10 17:36 Order name: Herpes Simplex Virus Culture EDAL 02/10 17:44 Order name: Hemoglobin A1c EDAL 02/10 16:46 Order name: CT Facial Bones W/ Con \T\ Mpr; Complete Time: 18:57 02/10 18:57 Interpretation: Report reviewed. 02/10 17:44 Order name: Lipid Profile EDAL 02/10 17:44 Order name: Urinalysis EDAL 02/10 17:44 Order name: CBC with Automated Diff EDAL 02/10 17:44 Order name: CBC with Automated Diff EDAL 02/10 17:44 Order name: Comprehensive Metabolic Panel EDAL 02/10 17:44 Order name: Comprehensive Metabolic Panel EDAL 02/10 17:46 Order name: SARS-COV-2 RT PCR; Complete Time: 18:57 EDAL 02/10 14:08 Order name: IV; Complete Time: 14:27 cp 02/10 17:44 Order name: Regular EDMS 02/10 17:50 Order name: Regular EDMS Administered Medications: 14:27 Drug: Benadryl (diphenhydrAMINE) 50 mg Route: IVP; Site: right antecubital; jd3 16:49 Follow up: Response: No adverse reaction; No change in condition vg1 14:27 Drug: SOLU-Medrol (methylPrednisoLONE) 125 mg Route: IVP; Site: right antecubital; jd3 16:49 Follow up: Response: No adverse reaction; No change in condition vg1 14:27 Drug: Pepcid (famotidine) 20 mg Route: IVP; Site: right antecubital; jd3 16:49 Follow up: Response: No adverse reaction; No change in condition vg1 16:54 Drug: NS 0.9% 1000 ml Route: IV; Rate: 125 ml/hr; Site: right antecubital; vg1 Disposition: 02/11 07:28 Co-signature as Attending Physician, Judd Cerrato MD I agree with the assessment and kdr plan of care. Disposition Summary: 02/10/22 16:50 Hospitalization Ordered Hospitalization Status: Inpatient Admission cp Provider: Bradly Pollard cp Location: Telemetry/MedSur (Inpatient) cp Condition: Stable cp Problem: new cp Symptoms: have worsened cp Bed/Room Type: Standard cp Room Assignment: 207(02/10/22 19:07) dw Diagnosis - Localized edema - upper and lower lips cp Forms: - Medication Reconciliation Form cp - SBAR form cp Signatures: Dispatcher [employer] EDLivier Yin RN RN dw Rittger, Kevin, MD MD kdr Page, Corey, PA PA cp Abdelrahman Quinn RN RN jAbbie Gaffney RN RN vg1 Corrections: (The following items were deleted from the chart) 02/10 17:23 14:00 Home Meds: adderall; 30 mg BID; jd3 vg1 17:46 17:26 COVID 19 CPL+MRMANDY.BRZ ordered. EDAL EDMS 19:07 16:50 cp dw
--- NOTE | 2022-02-10 16:51 | ER ---
Nurse's Notes [facility] Name: Mateus Jj Age: 56 yrs Sex: Male : 1965 Arrival Date: 02/10/2022 Time: 13:[address] Private MD: Diagnosis: Localized edema-upper and lower lips Presentation: 02/10 13:57 Chief complaint: Patient states: "My doctor sent me here for upper lip swelling and he jd3 was concerned for his airway.". Coronavirus screen: At this time, the client does not indicate any symptoms associated with coronavirus-19. Ebola Screen: No symptoms or risks identified at this time. Initial Sepsis Screen: Does the patient meet any 2 criteria? No. Patient's initial sepsis screen is negative. Does the patient have a suspected source of infection? No. Patient's initial sepsis screen is negative. Risk Assessment: Do you want to hurt yourself or someone else? Patient reports no desire to harm self or others. Onset of symptoms was February 10, 2022. 13:57 Method Of Arrival: Ambulatory jd3 13:57 Acuity: MOY 3 jd3 Triage Assessment: 14:27 General: Appears in no apparent distress. comfortable, Behavior is calm, cooperative, jd3 appropriate for age. Pain: Denies pain. EENT: swelling noted to upper and lower lips.. Neuro: Level of Consciousness is awake, alert, obeys commands, Oriented to person, place, time, situation. Cardiovascular: Denies chest pain, Capillary refill < 3 seconds Patient's skin is warm and dry. Respiratory: Airway is patent Respiratory effort is even, unlabored, Respiratory pattern is regular, symmetrical, Denies cough, shortness of breath. GI: No signs and/or symptoms were reported involving the gastrointestinal system. : No signs and/or symptoms were reported regarding the genitourinary system. Derm: Skin is intact, Skin is dry, Skin is normal, Skin temperature is warm. Musculoskeletal: Circulation, motion, and sensation intact. Range of motion: intact in all extremities. 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 - Social history:: Smoking status: Patient denies any tobacco usage or history of. Screenin:20 Abuse screen: Denies threats or abuse. Nutritional screening: No deficits noted. vg1 Tuberculosis screening: No symptoms or risk factors identified. Fall Risk No fall in past 12 months (0 pts). No secondary diagnosis (0 pts). IV access (20 points). Ambulatory Aid- None/Bed Rest/Nurse Assist (0 pts). Gait- Normal/Bed Rest/Wheelchair (0 pts) Mental Status- Oriented to own ability (0 pts). Total Melendez Fall Scale indicates No Risk (0-24 pts). Assessment: 15:19 General: Appears in no apparent distress. uncomfortable, Behavior is calm, cooperative. vg1 Pain: Denies pain. Neuro: Level of Consciousness is awake, alert, obeys commands, Oriented to person, place, time, situation. Cardiovascular: Patient's skin is warm and dry. Respiratory: Airway is patent Respiratory effort is even, unlabored, Denies shortness of breath labored breathing. GI: No signs and/or symptoms were reported involving the gastrointestinal system. : No signs and/or symptoms were reported regarding the genitourinary system. EENT: No signs and/or symptoms were reported regarding the EENT system. Derm: Skin is intact, is healthy with good turgor. Musculoskeletal: Swelling present in upper lip. 16:20 Reassessment: Patient appears in no apparent distress at this time. No changes from vg1 previously documented assessment. Patient and/or family updated on plan of care and expected duration. Pain level reassessed. Patient is alert, oriented x 3, equal unlabored respirations, skin warm/dry/pink. Vital Signs: 14:01 BP 117 / 77; Pulse 73; Resp 18 S; Temp 97.0(TE); Pulse Ox 98% on R/A; Weight 98.88 kg jd3 (R); Height 6 ft. 3 in. (190.50 cm) (R); Pain 0/10; 15:21 BP 106 / 77; Pulse 68; Resp 16; Pulse Ox 96% on R/A; vg1 16:00 BP 98 / 72; Pulse 65; Resp 16; Pulse Ox 95% on R/A; vg1 14:01 Body Mass Index 27.25 (98.88 kg, 190.50 cm) jd3 ED Course: 13:55 Patient arrived in ED. as 13:57 Terence Sanderson PA is PHCP. cp 13:57 Judd Cerrato MD is Attending Physician. cp 13:59 Triage completed. jd3 14:02 Arm band placed on. jd3 14:28 Inserted saline lock: 20 gauge in right antecubital area, using aseptic technique. jd3 Blood collected. placed by BAKARI Lares 14:58 Abbie Rosales, RN is Primary Nurse. vg1 15:21 Bed in low position. Call light in reach. Side rails up X 1. Adult w/ patient. vg1 16:47 Bradly oPllard is Hospitalizing Provider. cp 17:48 CT Facial Bones W/ Con \\T\\ Mpr In Process Unspecified. EDMS Administered Medications: 14:27 Drug: Benadryl (diphenhydrAMINE) 50 mg Route: IVP; Site: right antecubital; jd3 16:49 Follow up: Response: No adverse reaction; No change in condition vg1 14:27 Drug: SOLU-Medrol (methylPrednisoLONE) 125 mg Route: IVP; Site: right antecubital; jd3 16:49 Follow up: Response: No adverse reaction; No change in condition vg1 14:27 Drug: Pepcid (famotidine) 20 mg Route: IVP; Site: right antecubital; jd3 16:49 Follow up: Response: No adverse reaction; No change in condition vg1 16:54 Drug: NS 0.9% 1000 ml Route: IV; Rate: 125 ml/hr; Site: right antecubital; vg1 Outcome: 16:50 Decision to Hospitalize by Provider. cp 21:18 Patient left the ED. ld1 Signatures: Dispatcher [employer] EDMS Luke, Emma as Page, Terence, PA PA cp Quinn, Abdelrahman, RN RN jd3 Abbie Rosales RN RN vg1 Shannon Meeks RN RN ld1 Corrections: (The following items were deleted from the chart) 17:23 14:00 Home Meds: adderall; 30 mg BID; jd3 vg1
[2022-02-10] MEDS ORDERED: NA CHLORIDE 0.9% 1,000 ML ONE (16:53)
[2022-02-10] MEDS ORDERED: ONDANSETRON 4 MG/2 ML VIAL IV PRN (17:35)
[2022-02-10] MEDS ORDERED: ACETAMINOPHEN 500 MG TAB PO PRN (17:35)
[2022-02-10] MEDS ORDERED: HYDROCODONE/APAP 5/325 MG TAB PO PRN (17:38)
--- NOTE | 2022-02-10 17:49 | P.HP ---
Certification for Inpatient Patient admitted to: Observation With expected LOS: <2 Midnights Patient will require the following post-hospital care: None Practitioner: I am a practitioner with admitting privileges, knowledge of patient current condition, hospital course, and medical plan of care. Services: Services provided to patient in accordance with Admission requirements found in Title 42 Section 412.3 of the Code of Federal Regulations Patient History Date of Service: 02/10/22 Reason for admission: Lip swelling. History of Present Illness: Patient is a 56-year-old male with a past medical history significant for Castleman's disease, anxiety disorder, depression, narcolepsy who presents with complaint of lip swelling. Patient reported that 1 week ago he started having night sweats, fatigue, chills, body aches, tingling in lips and generalized malaise. Patient reported that he noticed lip swelling when he woke up this morning. Patient went for his routine MD follow-up check and patient indicated that MD instructed him to go to the ER for further evaluation. Patient denies any pain, shortness of breath, sore throat or any other signs and symptoms. Symptoms are aggravated or relieved by nothing. Patient decided to present to the hospital as directed by his MD. Allergies No Known Allergies Allergy (Verified 07/18/21 07:16) Home medications list reviewed: Yes Home Medications: Dextroamphetamine/Amphetamine [Adderall 30 mg Tablet] 30 mg PO DAILY 07/18/21 Vortioxetine Hydrobromide [Brintellix] 10 mg PO DAILY 07/18/21 clomiPHENE citrate [Clomiphene Citrate] 25 mg PO DAILY 07/18/21 - Past Medical/Surgical History -: vasovagal syncope -: narcolepsy -: Castelman's disease (old criteria) -: lymphadectomy R inguinal area 2008 -: R knee scope - Family History Family History: Reviewed- Non-Contributory - Social History Smoking Status: Never smoker Alcohol use: Yes CD- Drugs: No Caffeine use: Yes Place of Residence: Home Review of Systems General: Fever, Chills, Sweats, Weakness, Malaise Eyes: Unremarkable ENT: Unremarkable Respiratory: Unremarkable Cardiovascular: Unremarkable Gastrointestinal: Unremarkable Genitourinary: Unremarkable Musculoskeletal: Unremarkable Integumentary: Other (Lip swelling.) Neurological: Other (Tingling in the lips.), Unremarkable Physical Examination - Physical Exam General: Alert, In no apparent distress, Oriented x3 HEENT: Normocephalic, PERRLA Neck: Supple, 2+ carotid pulse no bruit, JVD not distended Respiratory: Clear to auscultation bilaterally, Normal air movement Cardiovascular: Normal pulses, Regular rate/rhythm, Normal S1 S2 Capillary refill: <2 Seconds Gastrointestinal: Normal bowel sounds, Soft and benign Musculoskeletal: No clubbing, No erythema, No tenderness Integumentary: No breakdown, No cyanosis, Tenderness/swelling (Lives.), Other (Rash located on left lower lip.) Neurological: Normal gait, Normal speech, Normal strength at 5/5 x4 extr Lymphatics: No axilla or inguinal lymphadenopathy - Studies Laboratory Data (last 24 hrs) 02/10/22 14:17: Sodium 136, Potassium 4.0, BUN 23 H, Creatinine 1.38 H, Glucose 92 02/10/22 14:17: WBC 5.7, Hgb 13.0 L, Hct 39.3 L, Plt Count 379 Assessment and Plan - Plan --Suspected allergic reaction. Patient placed on histamine 1 and 2 receptor blockers as well as steroids. Herpes and EBV tests pending. Minimal rash noted on left lower lip.. Continue supportive care. --Narcolepsy. Continue home medication. --Skin paresthesias. Patient reports tingling in his lips. We will continue to monitor and treat accordingly. --Anxiety disorder. Continue Ativan as needed. --Depression. Continue home medications. --Castleman's disease. Patient follow-up with outpatient an specialist. Continue supportive care. --CKD 2. Stable. We will continue to monitor renal functions. --History of vasovagal syncope. Continue supportive care. -DVT prophylaxis with Heparin subQ Discharge Plan: Home Plan to discharge in: 48 Hours - Advance Directives Does patient have a Living Will: Yes Does patient have a Durable POA for Healthcare: Yes - Code Status/Comfort Care Code Status Assessed: Yes Code Status: Full Code Critical Care: No
--- NOTE | 2022-02-10 17:54 | RAD REPORT ---
EXAM DESCRIPTION: CT - CTFBWCON CLINICAL HISTORY: upper and lower lip swelling Pain and swelling COMPARISON: Head angio dated 07/18/2021; Ct Stroke Brain Wo Cont dated 07/18/2021 TECHNIQUE: Axial 2 mm thick images of the face were obtained with sagittal and coronal reconstructio n images. All CT scans are performed using dose optimization technique as appropriate and may include automated exposure control or mA/KV adjustment according to patient size. FINDINGS: No acute facial bone fracture is seen.The mandible is intact. The globes and orbital contents are grossly unremarkable.The paranasal sinuses and mastoids are clear . Swelling of the lips is seen without underlying abnormality IMPRESSION: Soft tissue swellings of the lips is seen without underlying abnormality or drainable fl uid collection.
[2022-02-10] MEDS ORDERED: NA CHLORIDE 0.9% 1,000 ML IV SCH (18:00)
[2022-02-10] MEDS: DIPHENHYDRAMINE 50 MG/ML VIAL IV SCH (18:00)
[2022-02-10] MEDS ORDERED: LORazepam 2 MG/ML VIAL IV PRN (19:23)
[2022-02-10] MEDS ORDERED: HEPARIN 5000 UNIT/ML 1 ML VIAL SQ SCH (21:00)
[2022-02-10] MEDS ORDERED: FAMOTIDINE 20 MG/2 ML VIAL IV SCH (21:00)
[2022-02-10 21:21] VITALS: BMI 27.6
[2022-02-10] MEDS ORDERED: METHYLPREDNISOLONE 40 MG INJ IV SCH (23:00)
[2022-02-11 04:01] LABS: Urine Appearance CLEAR (Clear); Urine Bilirubin NEGATIVE (Negative); Urine Blood NEGATIVE (Negative); Urine Glucose NEGATIVE (Negative); Urine Protein NEGATIVE (Negative); Urine Specific Gravity >=1.030 (1.005-1.030); Urine Urobilinogen 0.2 mg/dL (0.2-1.0)
[2022-02-11 04:02] LABS: Urine Color YELLOW (Yellow); Urine Microscopic Reflex NO UMIC
[2022-02-11] MEDS: DIPHENHYDRAMINE 50 MG/ML VIAL IV SCH (05:44)
[2022-02-11 06:10] LABS: Absolute Lymphocytes (CBC) 0.7 K/uL (0.7-4.9); Hematocrit 36.4 % (39.6-49.0); MPV 6.7 fL (7.6-11.3); RBC Red Blood Cell Count 4.15 M/uL (4.33-5.43)
[2022-02-11 07:29] LABS: Albumin 2.8 g/dL (3.4-5.0); Bilirubin Total 0.2 mg/dL (0.2-1.0); Potassium 4.5 mmol/L (3.5-5.1); Protein, Total 7.3 g/dL (6.4-8.2)
[2022-02-11 08:36] VITALS: BP 112/66; TEMP 97.1
[2022-02-11] MEDS ORDERED: VORTIOXETINE HYDROBROMIDE 10 MG PO SCH (09:00)
[2022-02-11] MEDS ORDERED: AMPHETAMINE PO SCH (09:00)
[2022-02-11] MEDS ORDERED: DEXTROAMPHETAMINE PO SCH (09:00)
[2022-02-11 09:14] VITALS: O2SAT 95
[2022-02-11 11:01] LABS: Blood Morphology Comment NOT SEEN (NOT SEEN); Platelet Estimate ADEQ; White Blood Cell Scan OK (OK)
--- NOTE | 2022-02-11 13:18 | P.DS ---
Admission Date: 02/10/22 Discharge Date: 02/11/22 Disposition: ROUTINE DISCHARGE Discharge Condition: FAIR Reason for Admission: Lip swelling. - Problems (1) Allergic reaction Status: Acute Brief History of Present Illness: Patient is a 56-year-old male with a past medical history significant for Castleman's disease, anxiety disorder, depression, narcolepsy presented with complaint of lip swelling. Patient reported that 1 week ago he started having night sweats, fatigue, chills, body aches, tingling in lips and generalized malaise. Patient reported that he noticed lip swelling when he woke up this morning. Patient went for his routine MD follow-up check and patient indicated that MD instructed him to go to the ER for further evaluation. Patient denied any pain, shortness of breath, sore throat or any other signs and symptoms. In the emergency department was unremarkable. Patient hospitalized for monitoring and further management. Hospital Course: Patient placed under observation on the medical floor and treated with supportive measures. He was treated with IV steroid IV Pepcid. The lip swelling improved during the hospital stay, no throat pain or swelling, no airway compromise. Patient symptoms of improved, vitals are stable. Patient is deemed stable for discharge. Vital Signs/Physical Exam: Temp Pulse Resp BP Pulse Ox 97.1 F 60 14 112/66 98 02/11/22 08:00 02/11/22 08:00 02/11/22 08:00 02/11/22 08:00 02/11/22 08:00 General: Alert, In no apparent distress, Oriented x3 HEENT: PERRLA, Mucous membr. moist/pink, Other (Upper lip is mildly swollen) Neck: Supple, JVD not distended Respiratory: Clear to auscultation bilaterally, Normal air movement Cardiovascular: No edema, Regular rate/rhythm, Normal S1 S2 Gastrointestinal: Soft and benign, No tenderness Musculoskeletal: No clubbing, No contractures Integumentary: No rashes, No cyanosis Neurological: Normal strength at 5/5 x4 extr Laboratory Data at Discharge: WBC 7.7 K/uL (4.3-10.9) D 02/11/22 05:52 Hgb 12.0 g/dL (13.6-17.9) L 02/11/22 05:52 Hct 36.4 % (39.6-49.0) L 02/11/22 05:52 Plt Count 374 K/uL (152-406) 02/11/22 05:52 Sodium 135 mmol/L (136-145) L 02/11/22 05:52 Potassium 4.5 mmol/L (3.5-5.1) 02/11/22 05:52 BUN 28 mg/dL (7-18) H 02/11/22 05:52 Creatinine 1.33 mg/dL (0.55-1.3) H 02/11/22 05:52 Glucose 140 mg/dL (74-106) H 02/11/22 05:52 Total Bilirubin 0.2 mg/dL (0.2-1.0) 02/11/22 05:52 AST 48 U/L (15-37) H 02/11/22 05:52 ALT 153 U/L (12-78) H 02/11/22 05:52 Alkaline Phosphatase 54 U/L (45-117) 02/11/22 05:52 Triglycerides 113 mg/dL (<150) 02/10/22 20:48 Cholesterol 145 mg/dL (<200) 02/10/22 20:48 HDL Cholesterol 44 mg/dL (40-60) 02/10/22 20:48 Cholesterol/HDL Ratio 3.30 02/10/22 20:48 Home Medications: Dextroamphetamine/Amphetamine [Adderall 30 mg Tablet] 30 mg PO DAILY 07/18/21 clomiPHENE citrate [Clomiphene Citrate] 25 mg PO DAILY 07/18/21 Vortioxetine Hydrobromide [Trintellix] 10 mg PO DAILY 02/10/22 predniSONE [Deltasone] 20 mg PO DAILY #5 tab 02/11/22 New Medications: predniSONE [Deltasone] 20 mg PO DAILY #5 tab Followup: Maxime Castaneda [Primary Care Provider] - (Call to schedule appointment)
[2022-02-11] MEDS ORDERED: METHYLPREDNISOLONE 40 MG INJ IV SCH (19:00)
== END 2022-02-11 09:45 | disposition home or self-care (01) ==
LOC: ER 13:54 → ERHOLD 17:28 → 2ND 20:33
PROVIDERS: ADMIT Internal Medicine; ATTEND Internal Medicine
DX: T78.40XA Allergy, unspecified, initial encounter (principal); R20.2 Paresthesia of skin; D47.Z2 Castleman disease; G47.419 Narcolepsy without cataplexy; N18.2 Chronic kidney disease, stage 2 (mild); R55 Syncope and collapse; F41.9 Anxiety disorder, unspecified; F32.A Depression, unspecified; Z20.822 Contact with and (suspected) exposure to COVID-19
CPT/HCPCS: 85025 ×2; 80048; 36415 ×2; 80061; 81003; 83036; 80053; 86664; 86665; 70487; 76377; 96375; 96374; 99284; U0003; Q9967; J1200 ×2; J1644; J7030 ×2; J2930; J2920; G0378 ×3

== ENCOUNTER 2024-05-12 00:28 | Emergency (ER) | payer BC ==
[2024-05-12 04:14] LABS: Absolute Eosinophils 0.1 K/uL (0-0.5); Absolute Lymphocytes (CBC) 0.9 K/uL (0.7-4.9); Absolute Monocytes 0.5 K/uL (0.1-1.3); Absolute Neutrophil 1.6 K/uL (1.8-8.0); Basophils % 0.7 % (0-1.3); Eosinophils % 1.8 % (0-4.4); Hematocrit 35.5 % (39.6-49.0); Hemoglobin 11.9 g/dL (13.6-17.9); Lymphocytes % 29.2 % (15.3-44.8); MCH 29.8 pg (27.0-35.0); MCHC 33.5 g/dL (32.0-36.0); MPV 7.4 fL (7.6-11.3); Monocytes % 17.3 % (3.3-12.3); Nucleated Red Blood Cells % 0.1 % (0-0); Platelets 227 thou/uL (152-406); RBC Red Blood Cell Count 3.99 M/uL (4.33-5.43); Red Cell Distribution Width 13.9 % (12.1-15.2)
[2024-05-12] MEDS ORDERED: NA CHLORIDE 0.9% 2,000 ML ONE (05:00)
[2024-05-12] MEDS ORDERED: FAMOTIDINE 20 MG/2 ML VIAL IV ONE (05:00)
[2024-05-12] MEDS ORDERED: ASPIRIN 81 MG CHEWABLE TABLET ONE (05:00)
[2024-05-12 05:09] LABS: PT Prothrombin Time 11.6 SECONDS (9.4-12.5); Protime INR 1.06
[2024-05-12] MEDS ORDERED: AZITHROMYCIN 250 MG TAB ONE (05:34)
[2024-05-12 05:52] LABS: ALT/SGPT 26 U/L (16-61); Albumin 3.4 g/dL (3.4-5.0); Albumin/Globulin Ratio 0.9 (1.1-1.8); Alkaline Phosphatase 46 U/L (45-117); Anion Gap 6.4 mEq/L (5.0-15.0); BUN Blood Urea Nitrogen 12 mg/dL (7-18); Bicarbonate 27 mEq/L (21-32); Globulin 3.6 g/dL (2.3-3.5); Glomerular Filtration Rate 63 ml/min (=/>90); Glucose Level 100 mg/dL (74-106); NT PRO-BNP 90 pg/mL (<125); Sodium Level 137 mEq/L (136-145); Troponin High Sensitivity 4.8 pg/mL (<58.9)
[2024-05-12 05:53] LABS: AST/SGOT 29 U/L (15-37); Bilirubin Direct < 0.2 mg/dL (0-0.2); Bilirubin Total < 0.2 mg/dL (0.2-1.0); Magnesium 1.9 mg/dL (1.6-2.4); Potassium 4.4 mEq/L (3.5-5.1)
--- NOTE | 2024-05-12 06:41 | ER ---
Nurse's Notes [facility] Name: Mateus Jj Age: 58 yrs Sex: Male : 1965 Arrival Date: 05/12/2024 Time: 00:28 Bed 5 Private MD: Sean Perez E Diagnosis: SARS-associated coronavirus as the cause of diseases classified elsewhere;Syncope Near;Atelectasis Presentation: 05/12 01:09 Chief complaint: Patient states: standing up talking to , passed out, +LOC hit head vc1 on bed then the wall. Coronavirus screen: Vaccine status: Patient reports receiving the 2nd dose of the covid vaccine. Ebola Screen: Patient negative for fever greater than or equal to 101.5 degrees Fahrenheit, and additional compatible Ebola Virus Disease symptoms. Initial Sepsis Screen: Does the patient meet any 2 criteria? No. Patient's initial sepsis screen is negative. Risk Assessment: Do you want to hurt yourself or someone else? Patient reports no desire to harm self or others. 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; vasovagal syncope; ha1 - PSHx: 01:48 bone marrow biopsy; cyste removed from knee; lymphadectomy; right knee; ha1 Screenin:05 [facility] ED Fall Risk Assessment (Adult) History of falling in the last 3 months, ha1 including since admission No falls in past 3 months (0 pts) Confusion or Disorientation No (0 pts) Intoxicated or Sedated No (0 pts) Impaired Gait No (0 pts) Mobility Assist Device Used No (0 pt) Altered Elimination No (0 pt) Score/Fall Risk Level 0 - 2 = Low Risk Oriented to surroundings, Maintained a safe environment, Educated pt \T\ family on fall prevention, incl call for assistance when getting out of bed, Hourly rounding (assess needs \T\ fall precautionary measures) done. Abuse screen: Denies threats or abuse. Denies injuries from another. Nutritional screening: No deficits noted. Tuberculosis screening: No symptoms or risk factors identified. Primary Survey: 03:00 NO uncontrolled hemorrhage observed. Breathing/Chest: Spontaneous respiratory effort, ha1 equal unlabored respirations, breath sounds clear bilaterally, regular pattern, symmetrical chest rise and fall. Circulation: No external hemorrhage present. Regular and strong central pulse, skin warm/dry/normal color. Disability Pupils are equal, round, reactive to light and accommodation. Exposure/Environment: All clothing and personal items were removed. Forensic evidence collection is not deemed to be indicated at this time. Items placed in patient belonging bag. Assessment: 01:05 General: Appears comfortable, Behavior is calm, cooperative. Pain: Denies pain. Neuro: ha1 Level of Consciousness is awake, alert, obeys commands, Oriented to person, place, time, situation. Cardiovascular: Capillary refill < 3 seconds Patient's skin is warm and dry. Respiratory: Airway is patent Respiratory effort is even, unlabored, Respiratory pattern is regular, symmetrical. Respiratory: Reports cough that is non-productive, nasal congestion. Derm: Skin is pink, warm \T\ dry. Musculoskeletal: Circulation, motion, and sensation intact. Range of motion: intact in all extremities. 02:10 Reassessment: Patient and/or family updated on plan of care and expected duration. Pain ha1 level reassessed. Patient is alert, oriented x 3, equal unlabored respirations, skin warm/dry/pink. 03:05 Reassessment: Patient and/or family updated on plan of care and expected duration. Pain ha1 level reassessed. Patient is alert, oriented x 3, equal unlabored respirations, skin warm/dry/pink. 04:00 Reassessment: Patient and/or family updated on plan of care and expected duration. Pain ha1 level reassessed. Patient is alert, oriented x 3, equal unlabored respirations, skin warm/dry/pink. 05:00 Reassessment: Patient and/or family updated on plan of care and expected duration. Pain ha1 level reassessed. Patient is alert, oriented x 3, equal unlabored respirations, skin warm/dry/pink. Patient states feeling better. Patient states symptoms have improved. 06:00 Reassessment: Patient and/or family updated on plan of care and expected duration. Pain ha1 level reassessed. Patient is alert, oriented x 3, equal unlabored respirations, skin warm/dry/pink. Patient denies pain at this time. Patient states feeling better. Patient states symptoms have improved. Vital Signs: 01:09 BP 108 / 68; Pulse 65; Resp 16; Temp 98.3; vc1 01:09 Weight 98.43 kg; Height 6 ft. 3 in. ; Pain 0/10; vc1 01:47 BP 103 / 72; Pulse 64; Resp 17 S; Pulse Ox 91% on R/A; ha1 02:20 BP 115 / 72; Pulse 55; Resp 17 S; Pulse Ox 100% on R/A; ha1 03:30 BP 112 / 78; Pulse 57; Resp 17 S; Pulse Ox 100% on R/A; ha1 04:30 BP 127 / 85; Pulse 51; Resp 17 S; Pulse Ox 100% on R/A; ha1 05:50 BP 126 / 84; Pulse 55; Resp 17 S; Pulse Ox 100% on R/A; ha1 01:09 Body Mass Index 27.12 (98.43 kg, 190.5 cm) vc1 01:09 Pain Scale: Adult vc1 New Century Coma Score: 03:37 Eye Response: spontaneous(4). Motor Response: obeys commands(6). Verbal Response: juan antonio oriented(5). Total: 15. 03:39 Eye Response: spontaneous(4). Motor Response: obeys commands(6). Verbal Response: juan antonio oriented(5). Total: 15. NIH Stroke Scale Scores: 03:37 NIHSS Score: 0 juan antonio ED Course: 00:35 Patient arrived in ED. gm2 00:37 Sean Perez MD is Private Physician. gm2 01:05 Arm band placed on right wrist. ha1 01:20 Terence Recinos MD is Attending Physician. juan antonio 01:26 Triage completed. vc1 01:30 EKG done, by ED staff, reviewed by Terence Recinos MD. ha1 02:00 Inserted saline lock: 20 gauge in right antecubital area, using aseptic technique. ha1 Blood collected. 02:29 CT Head C Spine In Process Unspecified. EDMS 02:33 XRAY Chest (1 view) In Process Unspecified. EDMS 03:43 Basic Metabolic Panel Sent. ha1 03:44 CBC with Diff Sent. ha1 03:44 LFT's Sent. ha1 03:44 Magnesium Sent. ha1 03:44 NT PRO-BNP Sent. ha1 03:44 PT-INR Sent. ha1 03:44 Troponin HS Sent. ha1 05:30 CT Chest For PE Angio In Process Unspecified. EDMS 05:40 US Extremity Venous W Compression Tim In Process Unspecified. EDMS 06:11 No provider procedures requiring assistance completed. ha1 06:40 Sean Perez MD is Referral Physician. juan antonio 06:40 Devan Abel MD is Referral Physician. juan antonio 07:42 Silva Albarran, MAXIMO is Primary Nurse. ph 07:57 IV discontinued, intact, bleeding controlled, No redness/swelling at site. Pressure ph dressing applied. Administered Medications: 04:40 Drug: NS 0.9% IV 500 ml IV at bolus once Route: IV; Rate: bolus; Site: right ha1 antecubital; 04:40 Drug: NS 0.9% IV 1000 ml IV at 125 ml/hr continuous Route: IV; Rate: 125 ml/hr; Site: ha1 right antecubital; 04:40 Drug: NS 0.9% IV 500 ml IV at bolus once Route: IV; Rate: bolus; Site: right ha1 antecubital; 04:40 Drug: NS 0.9% IV 1000 ml IV at 1 bolus Per protocol; 1000 mL bolus Route: IV; Rate: 1 ha1 bolus; Site: right antecubital; 04:40 Drug: Aspirin PO Chewable Tablet 81 mg PO once Route: PO; ha1 04:40 Drug: Famotidine IVP 20 mg IVP once; dilute with 10 mL 0.9% NaCl; give over 2 minutes ha1 Route: IVP; Site: right antecubital; 05:53 Drug: AZITHromycin PO 500 mg PO once Route: PO; ha1 Medication: 06:11 VIS not applicable for this client. ha1 Outcome: 06:40 Discharge ordered by . juan antonio 07:57 Patient left the ED. ph 07:57 Discharged to home ambulatory, with significant other, ph 07:57 Condition: good 07:57 Discharge instructions given to patient, significant other, Instructed on discharge instructions, follow up and referral plans. medication usage, Demonstrated understanding of instructions, follow-up care, medications, Prescriptions given X 2, NIH Stroke Scale - NIH Stroke Score Date: 05/12/2024 Time: 03:37 Total Score = 0 10. Dysarthria (speech clarity - read or repeat words) - 0(Normal) 11. Extinction and Inattention (visual/tactile/auditory/spatial/personal) - 0(No abnormality) 1a. Level of Consciousness (LOC) - 0(Alert) 1b. Level of Consciousness (LOC) (Month \T\ Age) - 0(Both) 1c. LOC Commands (Open \T\ Closes Eyes/Inspector And Unloader) - 0(Both) 2. Best Gaze (Lateral Gaze Paresis) - 0(Normal) 3. Visual Field Loss - 0(No visual loss) 4. Facial Palsy - 0(Normal) 5a. Left Arm: Motor (10-second hold) - 0(No drift) 5b. Right Arm: Motor (10-second hold) - 0(No drift) 6a. Left Leg: Motor (5-second hold - always test supine) - 0(No drift) 6b. Right Leg: Motor (5-second hold - always test supine) - 0(No drift) 7. Limb Ataxia (finger/nose \T\ heel/barbosa - test with eyes open) - 0(Absent) 8. Sensory Loss (pinprick arms/legs/face) - 0(Normal) 9. Best Language: Aphasia (description/naming/reading) - 0(No aphasia) Initials: juan antonio Signatures: Dispatcher [employer] EDTerence Hong MD MD cha Hall, Patricia, RN RN ph Domenica Olvera, RN RN vc1 Gabrielle Geller RN RN ha1 Marta Oviedo 2
--- NOTE | 2024-05-12 06:41 | EDPHYS ---
Physician Documentation [facility] Name: Mateus Jj Age: 58 yrs Sex: Male : 1965 Arrival Date: 05/12/2024 Time: 00:28 Bed 5 Private MD: Sean Perez E ED Physician Terence Recinos HPI: 05/12 03:34 This 58 yrs old Black Male presents to ER via Ambulatory with complaints of Fall juan antonio Injury, COVID POSITIVE / FELL AND HIT HEAD. 03:34 Details of fall: The patient fell from an upright position, while standing. Onset: The juan antonio symptoms/episode began/occurred just prior to arrival, yesterday. Associated injuries: The patient sustained injury to the head. Severity of symptoms: At their worst the symptoms were moderate, in the emergency department the symptoms are unchanged. The patient has not experienced similar symptoms in the past. 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; vasovagal syncope; ha1 - PSHx: 01:48 bone marrow biopsy; cyste removed from knee; lymphadectomy; right knee; ha1 ROS: 03:37 Constitutional: Negative for fever, chills, and weight loss, Eyes: Negative for injury, juan antonio pain, redness, and discharge, ENT: Negative for injury, pain, and discharge, Neck: Negative for injury, pain, and swelling, Cardiovascular: Negative for chest pain, palpitations, and edema, Respiratory: Negative for shortness of breath, cough, wheezing, and pleuritic chest pain, Abdomen/GI: Negative for abdominal pain, nausea, vomiting, diarrhea, and constipation, Back: Negative for injury and pain, : Negative for injury, bleeding, discharge, and swelling, MS/Extremity: Negative for injury and deformity, Skin: Negative for injury, rash, and discoloration, Psych: Negative for depression, anxiety, suicide ideation, homicidal ideation, and hallucinations, Allergy/Immunology: Negative for hives, rash, and allergies, Endocrine: Negative for neck swelling, polydipsia, polyuria, polyphagia, and marked weight changes, Hematologic/Lymphatic: Negative for swollen nodes, abnormal bleeding, and unusual bruising, 03:37 Neuro: Positive for syncope, weakness, Exam: 03:37 Constitutional: This is a well developed, well nourished patient who is awake, alert, juan antonio and in no acute distress. Head/Face: Normocephalic, atraumatic. Eyes: Pupils equal round and reactive to light, extra-ocular motions intact. Lids and lashes normal. Conjunctiva and sclera are non-icteric and not injected. Cornea within normal limits. Periorbital areas with no swelling, redness, or edema. ENT: Nares patent. No nasal discharge, no septal abnormalities noted. Tympanic membranes are normal and external auditory canals are clear. Oropharynx with no redness, swelling, or masses, exudates, or evidence of obstruction, uvula midline. Mucous membranes moist. Neck: Trachea midline, no thyromegaly or masses palpated, and no cervical lymphadenopathy. Supple, full range of motion without nuchal rigidity, or vertebral point tenderness. No Meningismus. Chest/axilla: Normal chest wall appearance and motion. Nontender with no deformity. No lesions are appreciated. Cardiovascular: Regular rate and rhythm with a normal S1 and S2. No gallops, murmurs, or rubs. Normal PMI, no JVD. No pulse deficits. Respiratory: Lungs have equal breath sounds bilaterally, clear to auscultation and percussion. No rales, rhonchi or wheezes noted. No increased work of breathing, no retractions or nasal flaring. Abdomen/GI: Soft, non-tender, with normal bowel sounds. No distension or tympany. No guarding or rebound. No evidence of tenderness throughout. Back: No spinal tenderness. No costovertebral tenderness. Full range of motion. Male : Normal genitalia with no discharge or lesions. Skin: Warm, dry with normal turgor. Normal color with no rashes, no lesions, and no evidence of cellulitis. MS/ Extremity: Pulses equal, no cyanosis. Neurovascular intact. Full, normal range of motion. Neuro: Awake and alert, GCS 15, oriented to person, place, time, and situation. Cranial nerves II-XII grossly intact. Motor strength 5/5 in all extremities. Sensory grossly intact. Cerebellar exam normal. Normal gait. Psych: Awake, alert, with orientation to person, place and time. Behavior, mood, and affect are within normal limits. 03:37 ECG was reviewed by the Attending Physician. 03:37 Musculoskeletal/extremity: ROM: intact in all extremities, full active range of motion, full passive range of motion, Pulses: are normal with no appreciated deficits, Sensation intact. Compartment Syndrome exam of affected extremity: is normal. Weight bearing: able to fully bear weight, DVT Exam: No signs of deep vein thrombosis. no pain, no swelling, no tenderness, negative Homans' sign noted on exam, no appreciated bluish discoloration, no erythema, no increased warmth, Vital Signs: 01:09 BP 108 / 68; Pulse 65; Resp 16; Temp 98.3; vc1 01:09 Weight 98.43 kg; Height 6 ft. 3 in. ; Pain 0/10; vc1 01:47 BP 103 / 72; Pulse 64; Resp 17 S; Pulse Ox 91% on R/A; ha1 02:20 BP 115 / 72; Pulse 55; Resp 17 S; Pulse Ox 100% on R/A; ha1 03:30 BP 112 / 78; Pulse 57; Resp 17 S; Pulse Ox 100% on R/A; ha1 04:30 BP 127 / 85; Pulse 51; Resp 17 S; Pulse Ox 100% on R/A; ha1 05:50 BP 126 / 84; Pulse 55; Resp 17 S; Pulse Ox 100% on R/A; ha1 01:09 Body Mass Index 27.12 (98.43 kg, 190.5 cm) vc1 01:09 Pain Scale: Adult vc1 NIH Stroke Scale Scores: 03:37 NIHSS Score: 0 juan antonio Melcroft Coma Score: 03:37 Eye Response: spontaneous(4). Motor Response: obeys commands(6). Verbal Response: juan antonio oriented(5). Total: 15. 03:39 Eye Response: spontaneous(4). Motor Response: obeys commands(6). Verbal Response: juan antonio oriented(5). Total: 15. MDM: 01:20 Patient medically screened. juan antonio 03:39 Differential diagnosis: Contusion of Hematoma on Laceration of Intracranial bleed- juan antonio Concussion without LOC. cerebral contusion. Differential Diagnosis altered mental status, sepsis, flu. Differential diagnosis: closed head injury, contusion, fracture, laceration, multiple trauma, sprain, strain. Data reviewed: vital signs, nurses notes, lab test result(s), EKG, radiologic studies, CT scan, plain films. Consideration of Admission/Observation Escalation of care including admission/observation considered. I considered the following discharge prescriptions or medication management in the emergency department Medications were administered in the Emergency Department. See MAR. Independent interpretation of the following test(s) in the Emergency Department EKG: See my EKG interpretation above. Test considered but Not performed: MRI: no mri brain. Counseling: I had a detailed discussion with the patient and/or guardian regarding the historical points, exam findings, and any diagnostic results supporting the discharge/admit diagnosis, lab results, radiology results, the need for outpatient follow up, for definitive care, a family practitioner. 05/12 01:21 Order name: Basic Metabolic Panel [facility] 05/12 01:21 Order name: CBC with Diff; Complete Time: 05:05 [facility] 05/12 01:21 Order name: LFT's [facility] 05/12 01:21 Order name: Magnesium [facility] 05/12 01:21 Order name: NT PRO-BNP [facility] 05/12 01:21 Order name: PT-INR [facility] 05/12 01:21 Order name: Troponin HS [facility] 05/12 01:21 Order name: XRAY Chest (1 view) [facility] 05/12 01:21 Order name: CT Head C Spine [facility] 05/12 03:30 Order name: US Extremity Venous W Compression Itm [facility] 05/12 03:30 Order name: CT Chest For PE Angio [facility] 05/12 01:21 Order name: EKG; Complete Time: 01:22 [facility] 05/12 01:21 Order name: Cardiac monitoring; Complete Time: 03:43 [facility] 05/12 01:21 Order name: EKG - Nurse/Tech; Complete Time: 03:43 [facility] 05/12 01:21 Order name: IV Saline Lock; Complete Time: 03:43 [facility] 05/12 01:21 Order name: Labs collected and sent; Complete Time: 03:43 [facility] 05/12 01:21 Order name: O2 Per Protocol; Complete Time: 03:43 [facility] 05/12 01:21 Order name: O2 Sat Monitoring; Complete Time: 03:43 [facility] 05/12 03:43 Order name: Orthostatic Blood Pressure; Complete Time: 07:06 [facility] EC:37 Rate is 55 beats/min. Rhythm is regular. QRS [place] is Normal. ND interval is normal. QRS juan antonio interval is normal. QT interval is normal. No Q waves. T waves are Normal. No ST changes noted. Clinical impression: Sinus bradycardia. Interpreted by me. Reviewed by me. Administered Medications: 04:40 Drug: NS 0.9% IV 500 ml IV at bolus once Route: IV; Rate: bolus; Site: right ha1 antecubital; 04:40 Drug: NS 0.9% IV 1000 ml IV at 125 ml/hr continuous Route: IV; Rate: 125 ml/hr; Site: ha1 right antecubital; 04:40 Drug: NS 0.9% IV 500 ml IV at bolus once Route: IV; Rate: bolus; Site: right ha1 antecubital; 04:40 Drug: NS 0.9% IV 1000 ml IV at 1 bolus Per protocol; 1000 mL bolus Route: IV; Rate: 1 ha1 bolus; Site: right antecubital; 04:40 Drug: Aspirin PO Chewable Tablet 81 mg PO once Route: PO; ha1 04:40 Drug: Famotidine IVP 20 mg IVP once; dilute with 10 mL 0.9% NaCl; give over 2 minutes ha1 Route: IVP; Site: right antecubital; 05:53 Drug: AZITHromycin PO 500 mg PO once Route: PO; ha1 Disposition Summary: 05/12/24 06:40 Discharge Ordered Notes: Location: Home juan antonio Problem: new juan antonio Symptoms: have improved juan antonio Condition: Stable juan antonio Diagnosis - SARS-associated coronavirus as the cause of diseases classified elsewhere juan antonio - Syncope Near juan antonio - Atelectasis juan antonio Followup: juan antonio - With: Sena Perez MD - When: 2 - 3 days - Reason: Recheck today's complaints, Continuance of care, Re-evaluation by your physician Followup: juan antonio - With: Devan Abel MD - When: 2 - 3 days - Reason: Recheck today's complaints, Re-evaluation by your physician Discharge Instructions: - Discharge Summary Sheet juan antonio - Near-Syncope juan antonio - Syncope juan antonio - Weakness juan antonio - Near-Syncope, Yoam-fu-Mcsh juan antonio - Syncope, [id number] juan antonio - Aspirin and Your Heart juan antonio - COVID-19 juan antonio - 10 Things You Can Do to Manage Your COVID-19 Symptoms at Home - [facility] (05/22/2021) juan antonio - Viral Illness, Adult juan antonio Forms: - Medication Reconciliation Form juan antonio - Antibiotic Education juan antonio - Prescription Opioid Use juan antonio - Patient Portal Instructions juan antonio - Leadership Thank You Letter juan antonio Prescriptions: - Pepcid 20 mg Oral tablet - take 1 tablet ORAL route every 12 hours for 21 days; 42 tablet; Refills: 0, juan antonio Product Selection Permitted - Zithromax Z-Duarte 250 mg Oral tablet - take 1 tablet ORAL route as directed for 5 days Day 1 - take two (2) tablets juan antonio one time. Day 2, 3, 4 , 5 take one (1) tablet once daily.; 6 tablet; Refills: 0, Product Selection Permitted NIH Stroke Scale - NIH Stroke Score Date: 05/12/2024 Time: 03:37 Total Score = 0 10. Dysarthria (speech clarity - read or repeat words) - 0(Normal) 11. Extinction and Inattention (visual/tactile/auditory/spatial/personal) - 0(No abnormality) 1a. Level of Consciousness (LOC) - 0(Alert) 1b. Level of Consciousness (LOC) (Month \T\ Age) - 0(Both) 1c. LOC Commands (Open \T\ Closes Eyes/Decoration Checker) - 0(Both) 2. Best Gaze (Lateral Gaze Paresis) - 0(Normal) 3. Visual Field Loss - 0(No visual loss) 4. Facial Palsy - 0(Normal) 5a. Left Arm: Motor (10-second hold) - 0(No drift) 5b. Right Arm: Motor (10-second hold) - 0(No drift) 6a. Left Leg: Motor (5-second hold - always test supine) - 0(No drift) 6b. Right Leg: Motor (5-second hold - always test supine) - 0(No drift) 7. Limb Ataxia (finger/nose \T\ heel/barbosa - test with eyes open) - 0(Absent) 8. Sensory Loss (pinprick arms/legs/face) - 0(Normal) 9. Best Language: Aphasia (description/naming/reading) - 0(No aphasia) Initials: juan antonio Signatures: Dispatcher [employer] EDTerence Hong MD MD cha Ayala, Heidy RN RN ha1 Corrections: (The following items were deleted from the chart) 01:22 BASIC METABOLIC PANEL+C.LAB.BRZ ordered. EDMS EDMS 01:22 CBC+H.LAB.BRZ ordered. EDMS EDMS 01:22 HEPATIC FUNCTION+C.LAB.BRZ ordered. EDMS EDMS 01:22 MAGNESIUM+C.LAB.BRZ ordered. EDMS EDMS : 01:22 PROBNP+C.LAB.BRZ ordered. EDMS EDMS 01:22 PROTIME (+INR)+COAG.LAB.BRZ ordered. EDMS EDMS 01:22 Troponin High Sensitivity+C.LAB.BRZ ordered. EDMS EDMS 03:30 03:30 Chest For PE Angio+CT.RAD.BRZ ordered. EDMS EDMS
[2024-05-12 08:16] VITALS: BP 126/84; TEMP 98.3; O2SAT 100
--- NOTE | 2024-05-13 13:17 | RAD REPORT ---
EXAM DESCRIPTION: CT Angiography Chest With Intravenous Contrast CLINICAL HISTORY: The patient is 58 years old and is Male; Dyspnea TECHNIQUE: Axial computed tomographic angiography images of the chest with intravenous contrast. S agittal and coronal reformatted images were created and reviewed. This CT exam was performed using one or more of the following dose reduction techniques: automated exposure control, adjustment of t he mA and/or kV according to patient size, and/or use of iterative reconstruction technique. MIP reconstructed images were created and reviewed. COMPARISON: XR Chest 05/12/2024. FINDINGS: PULMONARY ARTERIES: Unremarkable No pulmonary embolism. AORTA: No acute findings. No thoracic aortic aneurysm. LUNGS: Unremarkable No mass. No consolidation. PLEURAL SPACE: Unremarkable No significant effusion. No pneumothorax. HEART: No evidence of RV dysfunction. No cardiomegaly or significant pericardial effusion. No significant coronary artery calcifications. BONES/JOINTS: No acute fracture. No dislocation. SOFT TISSUES: Unremarkable LYMPH NODES: Unremarkable No enlarged lymph nodes. IMPRESSION: Normal CTA chest exam. No pulmonary embolism or acute chest findings. Electronically signed by: Phuc Murcia MD 05/12/2024 06:25 AM CDT Due to temporary technical issues with the PACS/Fluency reporting system, reports are being signed by the in house radiologists without review as a courtesy to insure prompt reporting. The interpreting radiologist is fully responsible for the content of the report.
--- NOTE | 2024-05-13 13:32 | RAD REPORT ---
EXAM DESCRIPTION: Extrem Venous W Compress Tim US Bilateral Lower Extremity Venous Duplex Doppler CLINICAL HISTORY: Pain. COMPARISON: None TECHNIQUE: Grayscale, color Doppler, duplex Doppler, spectral Doppler images and analysis with compr ession and augmentation of right and left lower extremity veins. FINDINGS: Right and Left common femoral, greater saphenous, femoral, deep (profunda) femoral, poplit eal, posterior tibial veins unremarkable without evidence of clot. IMPRESSION: No sonographic evidence of right or left lower extremity DVT. Electronically signed by: Aureliano Rankin MD 05/12/2024 06:37 AM CDT RP Due to temporary technical issues with the PACS/Fluency reporting system, reports are being signed by the in house radiologists without review as a courtesy to insure prompt reporting. The interpreting radiologist is fully responsible for the content of the report.
--- NOTE | 2024-05-13 15:39 | RAD REPORT ---
EXAM DESCRIPTION: XR Chest 1 View AP CLINICAL HISTORY: Cough COMPARISON: Chest 1 View AP 07/18/2021 report without image TECHNIQUE: Chest 1 View AP FINDINGS: Trachea midline. Heart size and pulmonary vessels within normal limits. Lungs clear without evidence of consolidation, mass, or significant pulmonary edema. No significant pleural effusion or pneumothorax. Bones unremarkable. IMPRESSION: Unremarkable chest radiograph. Electronically signed by: Aureliano Rankin MD 05/12/2024 02:59 AM CDT RP Due to temporary technical issues with the PACS/Fluency reporting system, reports are being signed by the in house radiologists without review as a courtesy to insure prompt reporting. The interpreting radiologist is fully responsible for the content of the report.
--- NOTE | 2024-05-15 09:04 | EKG ---
Test Date: 2024-05-12 Test Time: 03:32:18 Human Resources Director: YURI MEASUREMENT RESULTS: Intervals: Rate: 55 AK: 148 QRSD: 78 QT: 412 QTc: 394 Mcbain: P: 71 AK: 148 QRS: 72 T: 59 INTERPRETIVE STATEMENTS: Sinus bradycardia Otherwise normal ECG No previous ECG available for comparison Electronically Signed On 05-15-24 09:03:55 CDT by Jarek Mcdaniel
== END 2024-05-12 07:57 | disposition home or self-care (01) ==
LOC: ER 00:28
DX: U07.1 COVID-19 (principal); J98.11 Atelectasis; W18.30XA Fall on same level, unspecified, initial encounter
CPT/HCPCS: 93005; 85025; 80048; 36415; 83735; 85610; 80076; 84484; 83880; 70450; 72125; 71275; 71045; 93970; 96374; 99284; Q9967; J7030